=== PATIENT | female | born 1965 | race Caucasian/White ===

== ENCOUNTER 2016-08-19 16:50 | Inpatient (IN) | payer BC, MEDICAID ==
[2016-08-19] MEDS ORDERED: IPRATROPIUM/ALBUTEROL 0.5-2.5 MG/3 ML AMPUL NEB ONE ×3 (17:00→21:14)
--- NOTE | 2016-08-19 17:03 | ER Document Report ---
ED Medical Screen (RME) - General Stated Complaint: DIFFICULTY BREATHING Mode of Arrival: Wheelchair Information source: Patient Notes: Patient presents to the emergency department with complaints of difficulty breathing. History of asthma or pneumonia. Patient was evaluated and treated by her primary care provider within steroids Levaquin and neb treatments. Last neb treatments 2 years ago. She is okay as long as she sitting down. I have greeted and performed a rapid initial assessment of this patient. A comprehensive ED assessment and evaluation of the patient, analysis of test results and completion of the medical decision making process will be conducted by additional ED providers. TRAVEL OUTSIDE OF THE [place] IN LAST 30 DAYS: No - Related Data Allergies/Adverse Reactions: Penicillins Allergy (Severe, Verified 08/27/12 10:42) Anaphylaxis Past Medical History - Social History Family history: CAD, DM, Hypertension, Malignancy - Past Medical History Cardiac Medical History: Reports: Hx Hypercholesterolemia, Hx Hypertension Denies: Hx Heart Attack Pulmonary Medical History: Reports: Hx Asthma, Hx COPD, Hx Pneumonia Neurological Medical History: Denies: Hx Cerebrovascular Accident Endocrine Medical History: Reports: Hx Diabetes Mellitus Type 2 GI Medical History: Reports: Hx Hepatitis - Hepatitis B Musculoskeltal Medical History: Reports Hx Arthritis, Denies Hx Fibromyalgia, Denies Hx Musculoskeletal Deformity Psychiatric Medical History: Reports: Hx Bipolar Disorder, Hx Depression Denies: Hx Anxiety Infectious Medical History: Reports: Hx Hepatitis - Hepatitis B. Denies: Hx MRSA Past Surgical History: Reports: Hx Appendectomy, Hx Genitourinary Surgery - multiple stents, nephrostomies, partial nephrectomy, Hx Orthopedic Surgery - R FOOT, Hx Tubal Ligation - Immunizations Hx Diphtheria, Pertussis, Tetanus Vaccination: Yes Physical Exam - Vital signs Vitals: Temp Pulse Resp BP Pulse Ox 97.6 F 102 H 26 H 157/89 H 92 08/19/16 16:56 08/19/16 16:56 08/19/16 16:56 08/19/16 16:56 08/19/16 16:56 Course - Vital Signs Vital signs: Temp Pulse Resp BP Pulse Ox 97.6 F 102 H 26 H 157/89 H 92 08/19/16 16:56 08/19/16 16:56 08/19/16 16:56 08/19/16 16:56 08/19/16 16:56
[2016-08-19 17:58] LABS: ABSOLUTE EOSINOPHILS # (AUTO) 0.2 10^3/uL (0.0-0.6); ABSOLUTE LYMPHOCYTES (AUTO) 1.5 10^3/uL (0.5-4.7); ABSOLUTE MONOCYTES (AUTO) 0.9 10^3/uL (0.1-1.4); ABSOLUTE NEUT (AUTO) 7.5 10^3/uL (1.7-8.2); BASOPHILS % (AUTO) 0.5 % (0-2); EOSINOPHILS % (AUTO) 1.7 % (0-6); HEMATOCRIT 44.6 % (36.0-47.0); HEMOGLOBIN 13.7 g/dL (12.0-15.5); HGB HCT DIFFERENCE -3.5; LYMPHOCYTES % (AUTO) 14.8 % (13-45); MEAN CORPUSCULAR HEMOGLOBIN 26.5 pg (27.0-33.4); MEAN CORPUSCULAR HGB CONC 30.6 g/dL (32.0-36.0); MEAN CORPUSCULAR VOLUME 87 fl (80-97); MONOCYTES % (AUTO) 8.9 % (3-13); RED BLOOD COUNT 5.15 10^6/uL (3.72-5.28); RED CELL DISTRIBUTION WIDTH 14.9 % (11.5-14.0); SEGMENTED NEUTROPHILS % (AUTO) 74.1 % (42-78); WHITE BLOOD COUNT 10.1 10^3/uL (4.0-10.5)
[2016-08-19 18:17] LABS: ALANINE AMINOTRANSFERASE 41 U/L (9-52); ALBUMIN 3.7 g/dL (3.5-5.0); ALKALINE PHOSPHATASE 110 U/L (38-126); ANION GAP 10 (5-19); ASPARTATE AMINO TRANSFERASE 21 U/L (14-36); BILIRUBIN,TOTAL 0.4 mg/dL (0.2-1.3); BLOOD UREA NITROGEN 26 mg/dL (7-20); CALCIUM 9.3 mg/dL (8.4-10.2); CARBON DIOXIDE 31 mmol/L (22-30); CHLORIDE 98 mmol/L (98-107); GLUCOSE 173 mg/dL (75-110); POTASSIUM 4.2 mmol/L (3.6-5.0); SODIUM 138.8 mmol/L (137-145); TOTAL PROTEIN 6.8 g/dL (6.3-8.2)
[2016-08-19] MEDS ORDERED: ALBUTEROL SULFATE 0.083% NEB 2.5 MG/3 ML AMPUL NEB ONE ×3 (19:38→21:14)
[2016-08-19] MEDS ORDERED: METHYLPREDNISOLONE INJ 125 MG/2 ML SDV IV ONE (19:41)
--- NOTE | 2016-08-19 19:43 | ER Document Report ---
ED Respiratory Problem - General Chief Complaint: Breathing Difficulty Stated Complaint: DIFFICULTY BREATHING Time seen by provider: 19:38 Mode of Arrival: Wheelchair Information source: Patient TRAVEL OUTSIDE OF THE [place] IN LAST 30 DAYS: No - HPI Patient complains to provider of: COPD, Cough, Short of breath Onset: Other - 3 weeks Duration: Worse/persistent Quality of pain: Achy Severity: Moderate Pain Level: 2 Context: Hx asthma, Hx COPD, Smoker Short of Breath: Moderate Chest pain/discomfort: Tightness Cough: Productive Sputum amount: Small Sputum color: Yellow Sputum consistency: Mucoid At home treatment: Bronchodilators, Oral steroids Associated symptoms: Congestion, Cough, Difficulty breathing, Sinus pain/ pressure, Short of breath, Wheezing Similar symptoms previously: Yes Recently seen / treated by doctor: Yes Notes: Patient is a 51-year-old female who is a smoker with a history of COPD and a previous episode of pneumonia, who presents to the emergency room complaining of sinus pain and congestion, productive cough, difficulty breathing and fever over the past 3 weeks, she has been seen by her primary care provider on 2 occasions during the course of illness and has been on antibiotics, previously on doxycycline, currently on Levaquin, with one dose of steroids yesterday and nebulizer treatments as needed, today her difficulty breathing has worsened - Related Data Allergies/Adverse Reactions: Penicillins Allergy (Severe, Verified 08/27/12 10:42) Anaphylaxis Past Medical History - General Information source: Patient - Social History Smoking Status: Current Every Day Smoker Chew tobacco use (# tins/day): No Frequency of alcohol use: None Drug Abuse: None Family History: Reviewed & Not Pertinent Patient has suicidal ideation: No Patient has homicidal ideation: No - Past Medical History Cardiac Medical History: Reports: Hx Hypercholesterolemia, Hx Hypertension Denies: Hx Heart Attack Pulmonary Medical History: Reports: Hx Asthma, Hx COPD, Hx Pneumonia Neurological Medical History: Denies: Hx Cerebrovascular Accident Endocrine Medical History: Reports: Hx Diabetes Mellitus Type 2 Renal/ Medical History: Denies: Hx Peritoneal Dialysis GI Medical History: Reports: Hx Hepatitis - Hepatitis B Musculoskeltal Medical History: Reports Hx Arthritis, Denies Hx Fibromyalgia, Denies Hx Musculoskeletal Deformity Psychiatric Medical History: Reports: Hx Bipolar Disorder, Hx Depression Denies: Hx Anxiety Infectious Medical History: Reports: Hx Hepatitis - Hepatitis B. Denies: Hx MRSA Past Surgical History: Reports: Hx Appendectomy, Hx Genitourinary Surgery - multiple stents, nephrostomies, partial nephrectomy, Hx Orthopedic Surgery - R FOOT, Hx Tubal Ligation - Immunizations Hx Diphtheria, Pertussis, Tetanus Vaccination: Yes Review of Systems - Review of Systems Constitutional: Fever EENT: See HPI Cardiovascular: No symptoms reported Respiratory: See HPI Gastrointestinal: No symptoms reported Genitourinary: No symptoms reported Female Genitourinary: No symptoms reported Musculoskeletal: No symptoms reported Skin: No symptoms reported Hematologic/Lymphatic: No symptoms reported Neurological/Psychological: No symptoms reported -: Yes All other systems reviewed and negative Physical Exam - Vital signs Vitals: Temp Pulse Resp BP Pulse Ox 97.6 F 102 H 26 H 157/89 H 92 08/19/16 16:56 08/19/16 16:56 08/19/16 16:56 08/19/16 16:56 08/19/16 16:56 Interpretation: Hypertensive, Tachycardic, Tachypneic - General General appearance: Appears well, Alert - HEENT Head: Normocephalic, Atraumatic Eyes: Normal Pupils: PERRL - Respiratory Respiratory status: No respiratory distress Chest status: Nontender Breath sounds: Nonproductive cough, Wheezing Chest palpation: Normal - Cardiovascular Rhythm: Regular Heart sounds: Normal auscultation Murmur: No - Abdominal Inspection: Normal Distension: No distension Bowel sounds: Normal Tenderness: Nontender Organomegaly: No organomegaly - Back Back: Normal, Nontender - Extremities General upper extremity: Normal inspection, Nontender, Normal color, Normal ROM , Normal temperature General lower extremity: Normal inspection, Nontender, Normal color, Normal ROM , Normal temperature, Normal weight bearing. No: Alo's sign - Neurological Neuro grossly intact: Yes Cognition: Normal Orientation: AAOx4 [place] Coma Scale Eye Opening: Spontaneous [place] Coma Scale Verbal: Oriented [place] Coma Scale Motor: Obeys Commands [place] Coma Scale Total: 15 Speech: Normal Motor strength normal: LUE, RUE, LLE, RLE Sensory: Normal - Psychological Associated symptoms: Normal affect, Normal mood - Skin Skin Temperature: Warm Skin Moisture: Dry Skin Color: Normal Course - Re-evaluation Re-evalutation: 08/19/16 21:47 Attempted to call hospitalist for admission, no answer 08/19/16 21:56 patient continues to have difficulty breathing, wheezing diffusely, no distress at the present time, however she's had multiple breathing treatments, IM steroids, therefore she was discussed with the hospitalist who will admit for further evaluation and treatment - Vital Signs Vital signs: Temp Pulse Resp BP Pulse Ox 97.6 F 102 H 26 H 157/89 H 92 08/19/16 16:56 08/19/16 16:56 08/19/16 16:56 08/19/16 16:56 08/19/16 16:56 - Laboratory Result Diagrams: 08/19/16 17:38 08/19/16 17:38 Laboratory results interpreted by me: 08/19/16 08/19/16 17:38 17:38 MCH 26.5 L MCHC 30.6 L RDW 14.9 H Carbon Dioxide 31 H BUN 26 H Est GFR ( Amer) 57 L Est GFR (Non-Af Amer) 47 L Glucose 173 H - Diagnostic Test Radiology reviewed: Image reviewed, Reports reviewed Discharge - Discharge Clinical Impression: Chronic obstructive pulmonary disease (COPD) Qualifiers: COPD type: COPD with acute exacerbation Qualified Code(s): J44.1 - Chronic obstructive pulmonary disease with (acute) exacerbation Condition: Stable Disposition: ADMITTED INPATIENT Admitting Provider: Hospitalist Unit Admitted: Telemetry Referrals: SUNNY WOODY MD [Primary Care Provider] - Follow up as needed
[2016-08-19] MEDS ORDERED: METHYLPREDNISOLONE INJ 125 MG/2 ML SDV IM ONE (19:53)
[2016-08-19] MEDS ORDERED: NICOTINE 21 MG/24 HR PATCH.TD24 TD SCH (22:15)
[2016-08-19] MEDS ORDERED: NICOTINE 21 MG/24 HR PATCH.TD24 TD PRN (23:58)
[2016-08-19] MEDS ORDERED: DEXTROSE 50%-WATER 25 GM/50 ML DISP.SYRIN IV PRN ×2 (23:59)
[2016-08-19] MEDS ORDERED: GLUCAGON,HUMAN RECOMB 1 MG INJ IM PRN (23:59)
[2016-08-19] MEDS ORDERED: DEXTROSE 40% GEL 15 GM TUBE PO PRN ×2 (23:59)
[2016-08-20] MEDS ORDERED: NORMAL SALINE 1000 ML 1,000 ML IV PRN (00:04)
[2016-08-20] MEDS ORDERED: ALBUTEROL SULFATE 0.083% NEB 2.5 MG/3 ML AMPUL NEB PRN (00:05)
[2016-08-20] MEDS ORDERED: GUAIFENESIN SYRP 200 MG/10 ML UDC PO PRN (00:05)
[2016-08-20 00:15] LABS: ADD ON TESTING BLD IN LAB ACKNOWLEDGE
[2016-08-20] MEDS ORDERED: GENTAMICIN SULFATE 0 MG in DEXTROSE 5%-WATER 100 ML IV NR (00:15)
[2016-08-20] MEDS ORDERED: AZTREONAM 1 GM in DEXTROSE 5%-WATER 50 ML IV SCH (00:15)
[2016-08-20 00:22] LABS: VENOUS BLOOD BASE EXCESS 0.9 mmol/L; VENOUS BLOOD HCO3 26.6 mmol/L (20-32); VENOUS BLOOD PCO2 46.4 mmHg (35-63); VENOUS BLOOD PH 7.38 (7.30-7.42)
[2016-08-20 00:32] LABS: MAGNESIUM 1.7 mg/dL (1.6-2.3)
--- NOTE | 2016-08-20 00:44 | PDOC H&P ---
History of Present Illness Admission Date/PCP: 08/19/16 22:01 SUNNY WOODY Rex Patient complains of: difficulty breathing History of Present Illness: PATRICE KEY is a 51 year old obese female, with underlying bipolar disorder, type II diabetes mellitus, hypertension, and chronic pain who presents to the emergency room for evaluation of above complaint. She has underlying asthma and COPD, and is a long-term smoker, currently on one and a half packs of cigarettes per day. Describes a 3 week history of slowly progressive difficulty breathing, with sinus congestion, productive cough, intermittent fever along with nausea but no vomiting. No diarrhea. Chest discomfort only with the cough. Difficulty breathing has worsened particularly over the last 24 hours, in particular with much of any exertion. Initially was treated by primary care provider with doxycycline for sinus infection. Currently on oral Levaquin. Received a dose of intramuscular steroids on the from her primary care provider. Despite the above treatment, her symptoms have slowly progressed. Has had neither flu nor pneumonia vaccinations. Obstructive sleep apnea, setting of 5, but she is not completely certain of this setting. No home oxygen. Patient has been discussed with emergency room physician who evaluated the patient. . Laboratory results are listed in [employer] and are reviewed. X-ray summary results are listed below, with full report(s) reviewed. . EKG pending Social history/personal habits: . Has children. Is a construction project manager at [employer] no use of alcohol or illicit drugs. Tobacco use as noted above. Allergies/adverse reactions are listed in [employer] and are reviewed. No problems with Keflex. Home medications are reviewed by discussion with patient and are to be reconciled by nursing staff in [facility]. Home medications initially autopopulated into [employer] may not accurately reflect patient's true medications, dosages, and/or frequencies. REVIEW OF SYSTEMS: Constitutional: See history and present illness. Eyes: Wears glasses. ENT: No swallowing problems or complaints. No hearing problems or complaints. Pulmonary: See history and present illness. Cardiovascular: See history and present illness. Gastrointestinal: See history and present illness. Skin: No current complaints, including rashes. Hematologic: No unusual easy bruising or bleeding. Neurologic: No current complaints, including numbness or tingling. Musculoskeletal: Joint pain from arthritis. Psychiatric: Mild depression; denies suicidal or homicidal ideation. Endocrine: No current complaints, including polyuria. Genitourinary: No current complaints, including dysuria. PHYSICAL EXAMINATION: 5 feet 9-1/2 inches tall. 113.8 kg. BMI 36.5 kg/m. Temperature 98.5. Pulse 110 and regular. Blood pressure 172/77. Respirations are 20 and unlabored. 91 % saturation on room air. Obese somewhat chronically ill-appearing female who nevertheless appears approximately her stated age. Appears to feel a bit under the weather, so to speak. Mildly anxious, but no agitation. Pleasant awake alert and cooperative. Female emergency room nurse Vicki is present. Skin is warm and dry. No grossly obvious evidence of rash in areas of skin examined. No subcutaneous nodules palpated. ENT: Hearing grossly normal to normal conversation. Tongue midline on protrusion pink and slightly tacky. Eyes: No scleral icterus. Pupils equal and reactive to light at 4 mm. Berry conjunctivae. Neck is supple and nontender to gentle active range of motion and palpation. Midline trachea. No palpable thyroid nodule mass enlargement or tenderness. Lymphatic: No palpable cervical or clavicular nodes. Neck and lymphatic exams limited by patient body habitus. Psychiatric: Reasonable insight into acute and chronic medical issues. Oriented to time location and why here. Lungs: Auscultation reveals equal breath sounds bilaterally. No use of accessory respiratory muscles. Mild brief expiratory wheezing throughout. Cardiovascular: Heart regular rate and rhythm, without gallop murmur or rub. No carotid or abdominal aortic bruits. No ankle or pedal edema. Faintly palpable dorsalis pedis pulses. Abdomen: soft, obese, nontender with positive bowel sounds. Unable to adequately evaluate abdomen for masses or organomegaly due to body habitus. Extremities: Feet are warm and dry. No calf tenderness to compression. No grossly obvious visual evidence of calf swelling. Gentle manipulation of lower extremities fails to reveal any obvious evidence of injury or instability to knees hips or ankles. Neurologic: Moves upper extremities grossly normally. Patellar reflexes absent. Absent Babinski. Light touch is intact at feet. Dorsiflexion and plantarflexion of feet 5 / 5 and symmetric. Past Medical History Cardiac Medical History: Reports: Hyperlipidema - On no medication for same., Hypertension Denies: Myocardial Infarction Pulmonary Medical History: Reports: Asthma, Chronic Obstructive Pulmonary Disease (COPD) - No home O2., Pneumonia, Sleep Apnea - CPAP, with setting of 5, but patient not completely certain of setting. EENT Medical History: Reports: Eyes - Glasses Denies: Ears, Throat Neurological Medical History: Denies: Hemorrhagic CVA, Ischemic CVA, Seizures Endocrine Medical History: Reports: Diabetes Mellitus Type 2, Obesity Denies: Diabetes Mellitus Type 1, Hyperthyroidism, Hypothyroidism Renal/ Medical History: Reports: Other - Solitary kidney, status post completion nephrectomy for benign disease, April 2016 GI Medical History: Reports: Hepatitis - Hepatitis B Denies: Cirrhosis, Gastroesophageal Reflux Disease, Peptic Ulcer Disease Musculoskeltal Medical History: Reports: Arthritis Denies: Fibromyalgia Psychiatric Medical History: Reports: Bipolar Disorder, Depression, Tobacco Dependency Denies: Alcohol Dependency, Substance Abuse Hematology: Reports: None Infectious Medical History: Reports: Hepatitis B Denies: Hepatitis C, Methicillin-Resistant Staph Aureus Past Surgical History Past Surgical History: Reports: Appendectomy, Orthopedic Surgery - R FOOT, Tubal Ligation, Other - Nephrectomy for benign disease Social History Information Source: Patient, Emergency Med Personnel, [facility] Records Lives with: Spouse/Significant other Smoking Status: Current Every Day Smoker Frequency of Alcohol Use: None Hx Recreational Drug Use: No Hx Prescription Drug Abuse: No - Advance Directive Resuscitation Status: Full Code Surrogate healthcare decision maker:: Family History Family History: Reviewed & Not Pertinent Parental Family History Reviewed: Yes Children Family History Reviewed: Yes Sibling(s) Family History Reviewed.: Yes Medication/Allergy Home Medications: RX: Fluoxetine HCl [Prozac 20 mg Capsule] 20 mg PO DAILY 09/11/11 RX: Trazodone HCl [Desyrel 50 mg Tablet] 50 mg PO QHS 09/11/11 RX: Metformin HCl [Metformin HCl ER] 750 mg PO QHS 12/31/14 RX: Levofloxacin [Levaquin 750 mg Tablet] 750 mg PO DAILY #3 tablet 01/11/15 Albuterol Sulfate [Albuterol Sulfate 2.5mg/3 mL] 1 vial IH Q4HP PRN 08/20/16 Albuterol Sulfate [Albuterol Sulfate Hfa] 2 puff IH Q4HP PRN 08/20/16 Budesonide/Formoterol Fumarate [Symbicort Hfa 160-4.5 Mcg Inhaler 6 gm] 2 puff IH Q12 08/20/16 Cyclobenzaprine HCl [Cyclobenzaprine HCl] 5 mg PO QHS 08/20/16 Ipratropium [place] [Atrovent 0.02% Neb 0.5 mg/2.5 ml Ampul] 0.5 mg NEB QIDP PRN 08/20/16 Ondansetron [Zofran Odt 4 mg Tablet] 4 mg PO TIDP PRN 08/20/16 Oxycodone HCl [Oxycontin] 30 mg PO Q12 08/20/16 Oxycodone HCl/Acetaminophen [Oxycodon-Acetaminophen 7.5-325] 1 tab PO Q6HP PRN 08/20/16 RX: Lisinopril [Prinivil 10 mg Tablet] 40 mg PO Q12 08/20/16 RX: Meloxicam 15 mg PO DAILY 08/20/16 Allergies/Adverse Reactions: Penicillins Allergy (Severe, Verified 08/20/16 00:08) Anaphylaxis Physical Exam Vital Signs: Temp Pulse Resp BP Pulse Ox 98.5 F 110 H 20 172/77 H 91 L 08/19/16 23:45 08/19/16 23:45 08/19/16 23:45 08/19/16 23:45 08/19/16 23:45 Results Impressions: Chest X-Ray 08/19/16 16:59 IMPRESSION: NO SIGNIFICANT RADIOGRAPHIC FINDING IN THE CHEST. Assessment & Plan - Diagnosis (1) ARF (acute renal failure) Qualifiers: Acute renal failure type: unspecified Qualified Code(s): N17.9 - Acute kidney failure, unspecified Is this a current diagnosis for this admission?: YesPlan: Likely prerenal. No vomiting or diarrhea, but little by mouth intake over the past 2-3 days. IV fluids. Follow-up chemistry. (2) Asthma exacerbation Is this a current diagnosis for this admission?: Yes (3) COPD exacerbation Is this a current diagnosis for this admission?: YesPlan: Patient will be admitted under COPD exacerbation and pneumonia protocol. Incentive spirometry twice a day. Scheduled DuoNeb's. PRN albuterol nebs Solu-Medrol Prevacid for gastritis prophylaxis. Antibiotics will consist of aztreonam, and intravenous Zithromax. I strongly encouraged patient to notify staff should patient feel that respiratory status is worsening. Patient is a full code. I have strongly encouraged patient not to get out of bed without notifying staff , , to avoid a fall with injury. Knee high SCDs for DVT prophylaxis, along with subcutaneous Lovenox Impression and plans were discussed with patient, who concurs. Time spent in evaluation and management of patient: 68 minutes. (4) Tobacco dependency Is this a current diagnosis for this admission?: YesPlan: When necessary nicotine patch. (5) Hypertension Qualifiers: Hypertension type: essential hypertension Qualified Code(s): I10 - Essential (primary) hypertension Is this a current diagnosis for this admission?: YesPlan: Resume home medications as appropriate once these have been reviewed. (6) Bipolar disorder Qualifiers: Active/Remission status: remission status unspecified Qualified Code (s): F31.9 - Bipolar disorder, unspecified Is this a current diagnosis for this admission?: YesPlan: Resume home medications as appropriate once these have been reviewed. (7) Diabetes mellitus type 2 in obese Is this a current diagnosis for this admission?: YesPlan: Will hold metformin the present time in case intravenous contrast study is required. Start with clear liquids. Accu-Cheks with appropriate sliding scale coverage. (8) Solitary kidney, acquired Is this a current diagnosis for this admission?: Yes - Inpatient Certification Based on my medical assessment, after consideration of the patient's comorbidities, presenting symptoms, or acuity I expect that the services needed warrant INPATIENT care.: Yes I certify that my determination is in accordance with my understanding of Medicare's requirements for reasonable and necessary INPATIENT services [42 CFR 412.3e].: Yes Medical Necessity: Significant Comorbidiites Make Outpatient Treatment Too Risky , Need Close Monitoring Due to Risk of Patient Decompensation, Need For IV Fluids, Need For Continuous Telemetry Monitoring, Need for Nebulizer Therapy and Monitoring of Response, Need for IV Antibiotics, Risk of Complication if Not Cared For in Hospital Post Hospital Care: D/C or Transfer Summary
[2016-08-20 00:50] LABS: CREATINE KINASE MB 1.16 ng/mL (<4.55)
[2016-08-20 00:51] LABS: TROPONIN I < 0.012 ng/mL
[2016-08-20 00:54] LABS: APPEARANCE,URINE CLEAR; BILIRUBIN,URINE NEGATIVE (NEGATIVE); GLUCOSE, URINE 150 mg/dL (NEGATIVE); KETONES,URINE NEGATIVE (NEGATIVE); LEUKOCYTE ESTERASE,URINE NEGATIVE (NEGATIVE); NITRITE,URINE NEGATIVE (NEGATIVE); PROTEIN,URINE 30 mg/dL (NEGATIVE); URINE SPECIFIC GRAVITY 1.012; UROBILINOGEN,URINE NEGATIVE mg/dL (<2.0)
[2016-08-20] MEDS ORDERED: AZITHROMYCIN 500 MG in DEXTROSE 5%-WATER 250 ML IV SCH (01:00)
[2016-08-20] MEDS ORDERED: GENTAMICIN SULFATE IV ONE (02:00)
[2016-08-20] MEDS ORDERED: WATER IV ONE (02:00)
[2016-08-20] MEDS ORDERED: DEXTROSE 5% IV ONE (02:00)
[2016-08-20] MEDS ORDERED: AZTREONAM 1 GM in DEXTROSE 5%-WATER 50 ML IV ONE (02:30)
[2016-08-20] MEDS: OXYCODONE HCL IR 5 MG TABLET PO PRN ×3 (02:40→16:38)
[2016-08-20] MEDS: INSULIN LISPRO 100 UNIT/ML 3 ML VIAL SUBCUT PRN ×4 (03:28→23:19)
[2016-08-20] MEDS ORDERED: GENTAMICIN SULFATE/PF INJ 20 MG/2 ML VIAL ONE (03:51)
[2016-08-20] MEDS ORDERED: GENTAMICIN SULFATE INJ 80 MG/2 ML VIAL ONE (03:51)
[2016-08-20] MEDS ORDERED: AZTREONAM INJ 1 GM VIAL ONE (03:52)
[2016-08-20] MEDS ORDERED: METHYLPREDNISOLONE INJ 125 MG/2 ML SDV IV SCH (04:00)
[2016-08-20 05:21] LABS: ANION GAP 14 (5-19); BLOOD UREA NITROGEN 23 mg/dL (7-20); CALCIUM 9.3 mg/dL (8.4-10.2); CARBON DIOXIDE 26 mmol/L (22-30); CHLORIDE 97 mmol/L (98-107); CREATININE RESULT 0.98 mg/dL (0.52-1.25); GLUCOSE 324 mg/dL (75-110); SODIUM 136.5 mmol/L (137-145)
[2016-08-20 05:29] LABS: HEMATOCRIT 42.8 % (36.0-47.0); HEMOGLOBIN 13.9 g/dL (12.0-15.5); HGB HCT DIFFERENCE -1.1; MEAN CORPUSCULAR HEMOGLOBIN 27.2 pg (27.0-33.4); MEAN CORPUSCULAR HGB CONC 32.4 g/dL (32.0-36.0); MEAN CORPUSCULAR VOLUME 84 fl (80-97); RED CELL DISTRIBUTION WIDTH 15.3 % (11.5-14.0); WHITE BLOOD COUNT 12.6 10^3/uL (4.0-10.5)
[2016-08-20 05:40] LABS: POTASSIUM 5.5 mmol/L (3.6-5.0)
[2016-08-20 05:42] LABS: ANISOCYTOSIS SLIGHT; BASOPHILS % (MANUAL) 0 % (0-2); EOSINOPHILS % (MANUAL) 0 % (0-6); LYMPHOCYTES % (MANUAL) 5 % (13-45); TOTAL CELLS COUNTED 100; TOXIC GRANULATION SLIGHT
[2016-08-20] MEDS: LANSOPRAZOLE 30 MG TAB.RAP.DR PO SCH ×2 (06:16→16:37)
[2016-08-20] MEDS ORDERED: IPRATROPIUM/ALBUTEROL 0.5-2.5 MG/3 ML AMPUL NEB SCH (08:00)
[2016-08-20] MEDS ORDERED: INFLUENZA ADLT QUAD (36MOS+) 2016-17 VAC 0.5 ML SYR IM PRN (08:32)
[2016-08-20] MEDS: ENOXAPARIN SODIUM INJ 40 MG/0.4 ML DISP.SYRIN SUBCUT SCH (09:00)
[2016-08-20] MEDS ORDERED: ONDANSETRON 4 MG TAB.RAPDIS PO PRN (09:58)
[2016-08-20] MEDS ORDERED: BENZONATATE 100 MG CAPSULE PO PRN (10:48)
[2016-08-20] MEDS: LEVOFLOXACIN 750 MG TABLET PO SCH (11:25)
[2016-08-20] MEDS: ACETAMINOPHEN 325 MG TABLET PO PRN (11:26)
[2016-08-20] MEDS ORDERED: FLUOXETINE HCL 20 MG CAPSULE PO ONE (11:30)
[2016-08-20] MEDS ORDERED: BUDESONIDE/FORMOTEROL 160-4.5 MCG 60 PUFF/6 GM MDI IH ONE (11:30)
[2016-08-20] MEDS ORDERED: GUAIFENESIN 600 MG TABLET.SA PO ONE (11:45)
[2016-08-20] MEDS ORDERED: CETIRIZINE 10 MG TABLET PO ONE (11:45)
[2016-08-20] MEDS ORDERED: LACTOBACILLUS ACIDOPHILUS 250 MG TAB PO ONE (11:45)
[2016-08-20] MEDS ORDERED: SODIUM POLYSTYRENE SULFONATE 15 GM/60 ML PO ONE (11:45)
[2016-08-20] MEDS ORDERED: FLUTICASONE/SALMETEROL DISKUS 250-50 MCG/DOSE IH ONE (11:45)
--- NOTE | 2016-08-20 12:42 | EKG REPORT ---
SEVERITY:- OTHERWISE NORMAL ECG - SINUS TACHYCARDIA : Confirmed by: Nathaly Lofton MD 20-Aug-2016 12:41:50
[2016-08-20] MEDS ORDERED: AMLODIPINE BESYLATE 5 MG TABLET PO ONE (13:00)
[2016-08-20] MEDS: ALBUTEROL SULFATE 0.083% NEB 2.5 MG/3 ML AMPUL NEB SCH ×2 (13:54→20:00)
[2016-08-20] MEDS: METHYLPREDNISOLONE INJ 125 MG/2 ML SDV IV SCH ×2 (13:56→22:33)
--- NOTE | 2016-08-20 14:33 | PDOC PROGRESS REPORT ---
Subjective Progress Note for:: 08/20/16 Subjective:: The patient was seen earlier today on rounds. The patient states that her shortness of breath has improved in comparison to when she came in however she still is quite dyspneic even ambulate into the bathroom. Patient admits to cough but denies any sputum production. The patient denies any nausea, vomiting , diarrhea dizziness, chest pain, heart palpitations, fevers, or chills. The patient has remained afebrile. Blood pressures have been in a good range. When prompted the patient voices no other concerns at this time. Review of systems: The rest of the review of systems is negative. Physical Exam Vital Signs: Temp Pulse Resp BP Pulse Ox 97.7 F 96 18 172/79 H 96 08/20/16 11:22 08/20/16 13:56 08/20/16 13:56 08/20/16 11:22 08/20/16 13:56 Intake & Output 08/18/16 08/19/16 08/20/16 23:59 23:59 23:59 Intake Total 1587 Output Total 2300 Balance -713 Weight 112.5 kg General appearance: PRESENT: no acute distress, well-developed, well-nourished Head exam: PRESENT: atraumatic, normocephalic Eye exam: PRESENT: conjunctiva pink, EOMI, PERRLA. ABSENT: scleral icterus Ear exam: PRESENT: normal external ear exam Mouth exam: PRESENT: moist, tongue midline Neck exam: ABSENT: carotid bruit, JVD, lymphadenopathy, thyromegaly Respiratory exam: PRESENT: symmetrical, tachypnea, wheezes - Diffuse expiratory wheezes. ABSENT: rales, rhonchi, unlabored Cardiovascular exam: PRESENT: RRR. ABSENT: diastolic murmur, rubs, systolic murmur Pulses: PRESENT: normal dorsalis pedis pul Vascular exam: PRESENT: normal capillary refill GI/Abdominal exam: PRESENT: normal bowel sounds, soft. ABSENT: distended, guarding, mass, organolmegaly, rebound, tenderness Rectal exam: PRESENT: deferred Extremities exam: PRESENT: full ROM. ABSENT: calf tenderness, clubbing, pedal edema Neurological exam: PRESENT: alert, awake, oriented to person, oriented to place , oriented to time, oriented to situation, CN II-XII grossly intact. ABSENT: motor sensory deficit Psychiatric exam: PRESENT: appropriate affect, normal mood. ABSENT: homicidal ideation, suicidal ideation Skin exam: PRESENT: dry, intact, warm. ABSENT: cyanosis, rash Results Laboratory Results: 08/20/16 04:30 08/20/16 04:30 08/20/16 08/20/16 08/20/16 00:12 00:36 04:30 WBC 12.6 H RBC 5.10 Hgb 13.9 Hct 42.8 MCV 84 MCH 27.2 MCHC 32.4 RDW 15.3 H Plt Count 207 Seg Neutrophils % Not Reportable Lymphocytes % Not Reportable Monocytes % Not Reportable Eosinophils % Not Reportable Basophils % Not Reportable Absolute Neutrophils Not Reportable Absolute Lymphocytes Not Reportable Absolute Monocytes Not Reportable Absolute Eosinophils Not Reportable Absolute Basophils Not Reportable VBG pH 7.38 VBG pCO2 46.4 VBG HCO3 26.6 VBG Base Excess 0.9 Sodium Potassium Chloride Carbon Dioxide Anion Gap BUN Creatinine Est GFR ( Amer) Est GFR (Non-Af Amer) Glucose Calcium Urine Color YELLOW Urine Appearance CLEAR Urine pH 5.0 Ur Specific [place] 1.012 Urine Protein 30 H Urine Glucose (UA) 150 H Urine Ketones NEGATIVE Urine Blood NEGATIVE Urine Nitrite NEGATIVE Ur Leukocyte Esterase NEGATIVE Urine WBC (Auto) 0 Urine RBC (Auto) 0 08/20/16 04:30 WBC RBC Hgb Hct MCV MCH MCHC RDW Plt Count Seg Neutrophils % Lymphocytes % Monocytes % Eosinophils % Basophils % Absolute Neutrophils Absolute Lymphocytes Absolute Monocytes Absolute Eosinophils Absolute Basophils VBG pH VBG pCO2 VBG HCO3 VBG Base Excess Sodium 136.5 L Potassium 5.5 H D Chloride 97 L Carbon Dioxide 26 Anion Gap 14 BUN 23 H Creatinine 0.98 Est GFR ( Amer) > 60 Est GFR (Non-Af Amer) > 60 Glucose 324 H Calcium 9.3 Urine Color Urine Appearance Urine pH Ur Specific [place] Urine Protein Urine Glucose (UA) Urine Ketones Urine Blood Urine Nitrite Ur Leukocyte Esterase Urine WBC (Auto) Urine RBC (Auto) 08/20/16 08/20/16 00:12 00:12 Creatine Kinase 72 CK-MB (CK-2) 1.16 Troponin I < 0.012 Impressions: Chest X-Ray 08/19/16 16:59 IMPRESSION: NO SIGNIFICANT RADIOGRAPHIC FINDING IN THE CHEST. Assessment & Plan - Diagnosis (1) Acute asthmatic bronchitis Is this a current diagnosis for this admission?: YesPlan: Will continue with steroids as well as nebulizers (2) COPD exacerbation Is this a current diagnosis for this admission?: Yes (3) Acute on chronic respiratory failure with hypoxia and hypercapnia Is this a current diagnosis for this admission?: YesPlan: Will continue C Pap. Continues on O2. (4) ARF (acute renal failure) Qualifiers: Acute renal failure type: unspecified Qualified Code(s): N17.9 - Acute kidney failure, unspecified Is this a current diagnosis for this admission?: YesPlan: BUN has improved with hydration (5) Diastolic dysfunction Is this a current diagnosis for this admission?: No (6) Hypertension Qualifiers: Hypertension type: essential hypertension Qualified Code(s): I10 - Essential (primary) hypertension Is this a current diagnosis for this admission?: YesPlan: Will hold lisinopril given the patient's hyperkalemia. Start patient on Norvasc and follow. (7) Bipolar disorder Qualifiers: Active/Remission status: remission status unspecified Qualified Code (s): F31.9 - Bipolar disorder, unspecified Is this a current diagnosis for this admission?: YesPlan: Will continue home medications. (8) Diabetes mellitus type 2 in obese Is this a current diagnosis for this admission?: YesPlan: Will continue current medications (9) Hepatitis B Is this a current diagnosis for this admission?: No (10) Solitary kidney, acquired Is this a current diagnosis for this admission?: Yes (11) Hyperkalemia Is this a current diagnosis for this admission?: YesPlan: The patient's sodium so normal range will give Kayexalate. (12) Tobacco dependency Is this a current diagnosis for this admission?: YesPlan: Spent 3 minutes discussing smoking cessation education. The patient declines any pharmacological intervention at this time however will add a PRN nicotine patch. (13) Obesity (BMI 30-39.9) Is this a current diagnosis for this admission?: Yes - Time Time Spent with patient: on this visit including assessment, plan, physical examination, family meeting, and specialty collaboration, and patient education is 35 minutes. Time Spent with patient: 35 or more minutes Medications reviewed and adjusted accordingly: Yes Anticipated discharge: Home Within: within 48 hours Disposition: The patient is a full code. Pending patient's symptomatology and diagnostic findings will reevaluate in the a.m.
[2016-08-20] MEDS: LACTOBACILLUS ACIDOPHILUS 250 MG TAB PO SCH (18:04)
[2016-08-20] MEDS ORDERED: (PENDING PHARMACY ID) (Metformin Hcl [Metformin Hcl Er] 750 MG) PO SCH (22:00)
[2016-08-20] MEDS ORDERED: (PENDING PHARMACY ID) (Cyclobenzaprine Hcl [Cyclobenzaprine Hcl] 5 MG) PO SCH (22:00)
[2016-08-20] MEDS: CYCLOBENZAPRINE HCL 10 MG TABLET PO SCH (22:31)
[2016-08-20] MEDS: GUAIFENESIN 600 MG TABLET.SA PO SCH (22:31)
[2016-08-20] MEDS: TRAZODONE HCL 50 MG TABLET PO SCH (22:33)
[2016-08-20] MEDS: FLUTICASONE/SALMETEROL DISKUS 250-50 MCG/DOSE IH SCH (22:33)
[2016-08-20] MEDS: BUDESONIDE/FORMOTEROL 160-4.5 MCG 60 PUFF/6 GM MDI IH SCH (22:33)
[2016-08-20] MEDS: MONTELUKAST SODIUM 10 MG TABLET PO SCH (22:33)
[2016-08-20] MEDS: AMLODIPINE BESYLATE 5 MG TABLET PO SCH (22:34)
[2016-08-20] MEDS ORDERED: OXYCODONE HCL SR 10 MG TABLET PO SCH (23:00)
[2016-08-20] MEDS: ALBUTEROL SULFATE 0.042% NEB (1.25 MG/3 ML) AMPUL NEB PRN (23:43)
[2016-08-21] MEDS ORDERED: OXYCODONE HCL SR 10 MG TABLET PO ONE (01:30)
[2016-08-21] MEDS: HYDRALAZINE HCL INJ/PF 20 MG/1 ML SDV IV PRN (03:25)
[2016-08-21 05:17] LABS: HEMATOCRIT 44.2 % (36.0-47.0); HEMOGLOBIN 14.2 g/dL (12.0-15.5); HGB HCT DIFFERENCE -1.6; MEAN CORPUSCULAR HEMOGLOBIN 26.9 pg (27.0-33.4); MEAN CORPUSCULAR HGB CONC 32.2 g/dL (32.0-36.0); MEAN CORPUSCULAR VOLUME 84 fl (80-97); RED BLOOD COUNT 5.28 10^6/uL (3.72-5.28); RED CELL DISTRIBUTION WIDTH 15.4 % (11.5-14.0)
[2016-08-21 05:28] LABS: WHITE BLOOD COUNT 27.2 10^3/uL (4.0-10.5)
[2016-08-21 05:31] LABS: ANION GAP 12 (5-19); BLOOD UREA NITROGEN 32 mg/dL (7-20); CALCIUM 9.5 mg/dL (8.4-10.2); CARBON DIOXIDE 25 mmol/L (22-30); CHLORIDE 100 mmol/L (98-107); GLUCOSE 238 mg/dL (75-110); MAGNESIUM 1.9 mg/dL (1.6-2.3); POTASSIUM 4.3 mmol/L (3.6-5.0); SODIUM 137.3 mmol/L (137-145)
[2016-08-21] MEDS: METHYLPREDNISOLONE INJ 125 MG/2 ML SDV IV SCH ×3 (06:16→22:21)
[2016-08-21] MEDS: LANSOPRAZOLE 30 MG TAB.RAP.DR PO SCH ×2 (06:57→16:17)
[2016-08-21] MEDS: ALBUTEROL SULFATE 0.083% NEB 2.5 MG/3 ML AMPUL NEB SCH ×3 (08:22→19:58)
[2016-08-21] MEDS: ENOXAPARIN SODIUM INJ 40 MG/0.4 ML DISP.SYRIN SUBCUT SCH (08:29)
[2016-08-21] MEDS: INSULIN LISPRO 100 UNIT/ML 3 ML VIAL SUBCUT PRN ×4 (08:29→22:20)
[2016-08-21] MEDS: BUDESONIDE/FORMOTEROL 160-4.5 MCG 60 PUFF/6 GM MDI IH SCH ×2 (09:14→22:33)
[2016-08-21] MEDS: FLUTICASONE/SALMETEROL DISKUS 250-50 MCG/DOSE IH SCH ×2 (09:14→22:20)
[2016-08-21] MEDS: AMLODIPINE BESYLATE 5 MG TABLET PO SCH ×2 (09:15→22:23)
[2016-08-21] MEDS: FLUOXETINE HCL 20 MG CAPSULE PO SCH (09:15)
[2016-08-21] MEDS: LACTOBACILLUS ACIDOPHILUS 250 MG TAB PO SCH ×2 (09:15→17:29)
[2016-08-21] MEDS: GUAIFENESIN 600 MG TABLET.SA PO SCH ×2 (09:16→22:22)
[2016-08-21] MEDS: OXYCODONE HCL SR 10 MG TABLET PO SCH ×2 (09:16→22:21)
[2016-08-21] MEDS: CETIRIZINE 10 MG TABLET PO SCH (09:16)
[2016-08-21] MEDS: ACETAMINOPHEN 325 MG TABLET PO PRN (09:17)
[2016-08-21] MEDS ORDERED: (PENDING PHARMACY ID) (Oxycodone Hcl [Oxycontin] 30 MG) PO SCH (10:00)
[2016-08-21] MEDS: LEVOFLOXACIN 750 MG TABLET PO SCH (11:38)
[2016-08-21] MEDS: OXYCODONE HCL IR 5 MG TABLET PO PRN ×2 (11:41→17:33)
[2016-08-21] MEDS: CODEINE SULF 30 MG TABLET PO PRN ×2 (15:20→23:48)
[2016-08-21] MEDS ORDERED: HYDRALAZINE HCL 50 MG TABLET PO SCH (15:30)
--- NOTE | 2016-08-21 15:32 | PDOC PROGRESS REPORT ---
Subjective Progress Note for:: 08/21/16 Subjective:: The patient was seen earlier today on rounds. The patient states that her shortness of breath has improved in comparison to yesterday. Patient states that she has not slept overnight due to excessive coughing. Patient admits to cough but denies any sputum production. The patient denies any nausea, vomiting , diarrhea dizziness, chest pain, heart palpitations, fevers, or chills. The patient has remained afebrile. Blood pressures have been in a good range. When prompted the patient voices no other concerns at this time. Review of systems: The rest of the review of systems is negative. Physical Exam Vital Signs: Temp Pulse Resp BP Pulse Ox 98.0 F 96 17 186/86 H 92 08/21/16 07:47 08/21/16 08:22 08/21/16 08:22 08/21/16 07:47 08/21/16 07:47 Intake & Output 08/19/16 08/20/16 08/21/16 23:59 23:59 23:59 Intake Total 3665 623 Output Total 3600 2000 Balance 65 -1377 Weight 112.5 kg General appearance: PRESENT: no acute distress, well-developed, well-nourished Head exam: PRESENT: atraumatic, normocephalic Eye exam: PRESENT: conjunctiva pink, EOMI, PERRLA. ABSENT: scleral icterus Ear exam: PRESENT: normal external ear exam Mouth exam: PRESENT: moist, tongue midline Neck exam: ABSENT: carotid bruit, JVD, lymphadenopathy, thyromegaly Respiratory exam: PRESENT: symmetrical, tachypnea, wheezes - Diffuse expiratory wheezes. ABSENT: rales, rhonchi, unlabored Cardiovascular exam: PRESENT: RRR. ABSENT: diastolic murmur, rubs, systolic murmur Pulses: PRESENT: normal dorsalis pedis pul Vascular exam: PRESENT: normal capillary refill GI/Abdominal exam: PRESENT: normal bowel sounds, soft. ABSENT: distended, guarding, mass, organolmegaly, rebound, tenderness Rectal exam: PRESENT: deferred Extremities exam: PRESENT: full ROM. ABSENT: calf tenderness, clubbing, pedal edema Neurological exam: PRESENT: alert, awake, oriented to person, oriented to place , oriented to time, oriented to situation, CN II-XII grossly intact. ABSENT: motor sensory deficit Psychiatric exam: PRESENT: appropriate affect, normal mood. ABSENT: homicidal ideation, suicidal ideation Skin exam: PRESENT: dry, intact, warm. ABSENT: cyanosis, rash Results Laboratory Results: 08/21/16 04:55 08/21/16 04:55 08/21/16 08/21/16 04:55 04:55 WBC 27.2 H D RBC 5.28 Hgb 14.2 Hct 44.2 MCV 84 MCH 26.9 L MCHC 32.2 RDW 15.4 H Plt Count 208 Sodium 137.3 Potassium 4.3 Chloride 100 Carbon Dioxide 25 Anion Gap 12 BUN 32 H Creatinine 0.80 Est GFR ( Amer) > 60 Est GFR (Non-Af Amer) > 60 Glucose 238 H Calcium 9.5 Magnesium 1.9 08/20/16 08/20/16 00:12 00:12 Creatine Kinase 72 CK-MB (CK-2) 1.16 Troponin I < 0.012 Impressions: Chest X-Ray 08/19/16 16:59 IMPRESSION: NO SIGNIFICANT RADIOGRAPHIC FINDING IN THE CHEST. Assessment & Plan - Diagnosis (1) Acute asthmatic bronchitis Is this a current diagnosis for this admission?: YesPlan: Will continue with steroids as well as nebulizers (2) COPD exacerbation Is this a current diagnosis for this admission?: Yes (3) Acute on chronic respiratory failure with hypoxia and hypercapnia Is this a current diagnosis for this admission?: YesPlan: Will continue C Pap. Continues on O2. Will obtain d-dimer if elevated will obtain CTA. (4) ARF (acute renal failure) Qualifiers: Acute renal failure type: unspecified Qualified Code(s): N17.9 - Acute kidney failure, unspecified Is this a current diagnosis for this admission?: YesPlan: BUN has improved with hydration (5) Diastolic dysfunction Is this a current diagnosis for this admission?: No (6) Hypertension Qualifiers: Hypertension type: essential hypertension Qualified Code(s): I10 - Essential (primary) hypertension Is this a current diagnosis for this admission?: YesPlan: Will hold lisinopril given the patient's hyperkalemia. Start patient on Norvasc and follow. (7) Bipolar disorder Qualifiers: Active/Remission status: remission status unspecified Qualified Code (s): F31.9 - Bipolar disorder, unspecified Is this a current diagnosis for this admission?: YesPlan: Will continue home medications. (8) Diabetes mellitus type 2 in obese Is this a current diagnosis for this admission?: YesPlan: Will continue current medications (9) Hepatitis B Is this a current diagnosis for this admission?: No (10) Solitary kidney, acquired Is this a current diagnosis for this admission?: Yes (11) Hyperkalemia Is this a current diagnosis for this admission?: YesPlan: The patient's sodium so normal range will give Kayexalate. (12) Tobacco dependency Is this a current diagnosis for this admission?: YesPlan: PRN nicotine patch. (13) Obesity (BMI 30-39.9) Is this a current diagnosis for this admission?: Yes - Time Time Spent with patient: on this visit including assessment, plan, physical examination, and patient education is 25 minutes. Time Spent with patient: 25-34 minutes Medications reviewed and adjusted accordingly: Yes Anticipated discharge: Home Within: within 48 hours Disposition: The patient is a full code. Pending patient's symptomatology and diagnostic findings will reevaluate in the a.m.
[2016-08-21] MEDS ORDERED: HYDRALAZINE HCL 50 MG TABLET PO ONE (16:00)
[2016-08-21] MEDS: NICOTINE 21 MG/24 HR PATCH.TD24 TD PRN (18:42)
[2016-08-21] MEDS: TRAZODONE HCL 50 MG TABLET PO SCH (22:22)
[2016-08-21] MEDS: CYCLOBENZAPRINE HCL 10 MG TABLET PO SCH (22:22)
[2016-08-21] MEDS: HYDRALAZINE HCL 50 MG TABLET PO SCH (22:22)
[2016-08-21] MEDS: MONTELUKAST SODIUM 10 MG TABLET PO SCH (22:23)
[2016-08-22] MEDS: METHYLPREDNISOLONE INJ 125 MG/2 ML SDV IV SCH ×3 (05:54→21:29)
[2016-08-22] MEDS: LANSOPRAZOLE 30 MG TAB.RAP.DR PO SCH ×2 (05:55→17:33)
[2016-08-22] MEDS: HYDRALAZINE HCL 50 MG TABLET PO SCH ×3 (05:55→21:25)
[2016-08-22] MEDS: ALBUTEROL SULFATE 0.083% NEB 2.5 MG/3 ML AMPUL NEB SCH ×3 (07:44→19:30)
[2016-08-22] MEDS: INSULIN LISPRO 100 UNIT/ML 3 ML VIAL SUBCUT PRN ×3 (08:09→23:19)
[2016-08-22] MEDS: ENOXAPARIN SODIUM INJ 40 MG/0.4 ML DISP.SYRIN SUBCUT SCH (08:09)
[2016-08-22] MEDS: CODEINE SULF 30 MG TABLET PO PRN ×2 (08:10→16:25)
[2016-08-22] MEDS: OXYCODONE HCL SR 10 MG TABLET PO SCH ×2 (09:29→21:26)
[2016-08-22] MEDS: CETIRIZINE 10 MG TABLET PO SCH (09:30)
[2016-08-22] MEDS: LACTOBACILLUS ACIDOPHILUS 250 MG TAB PO SCH ×2 (09:30→17:33)
[2016-08-22] MEDS: FLUOXETINE HCL 20 MG CAPSULE PO SCH (09:31)
[2016-08-22] MEDS: GUAIFENESIN 600 MG TABLET.SA PO SCH ×2 (09:31→21:25)
[2016-08-22] MEDS: AMLODIPINE BESYLATE 5 MG TABLET PO SCH ×2 (09:31→21:24)
[2016-08-22] MEDS: FLUTICASONE/SALMETEROL DISKUS 250-50 MCG/DOSE IH SCH ×2 (09:32→21:27)
[2016-08-22] MEDS: BUDESONIDE/FORMOTEROL 160-4.5 MCG 60 PUFF/6 GM MDI IH SCH ×2 (09:32→21:27)
[2016-08-22] MEDS: LEVOFLOXACIN 750 MG TABLET PO SCH (13:10)
--- NOTE | 2016-08-22 13:29 | PDOC PROGRESS REPORT ---
Subjective Progress Note for:: 08/22/16 Subjective:: The patient was seen earlier today on rounds. The patient states that her shortness of breath has improved in comparison to yesterday. Patient states that she has not slept well. The patient stated that her coughing did improve with codeine. The patient denies any nausea, vomiting, diarrhea dizziness, chest pain, heart palpitations, fevers, or chills. The patient has remained afebrile. Blood pressures have been in a good range. When prompted the patient voices no other concerns at this time. Review of systems: The rest of the review of systems is negative. Physical Exam Vital Signs: Temp Pulse Resp BP Pulse Ox 98.3 F 113 H 22 H 175/63 H 92 08/22/16 12:03 08/22/16 12:03 08/22/16 12:03 08/22/16 12:03 08/22/16 12:03 Intake & Output 08/20/16 08/21/16 08/22/16 23:59 23:59 23:59 Intake Total 3665 876 800 Output Total 3600 2300 1200 Balance 65 -1424 -400 Weight 112.5 kg 112.5 kg General appearance: PRESENT: no acute distress, well-developed, well-nourished Head exam: PRESENT: atraumatic, normocephalic Eye exam: PRESENT: conjunctiva pink, EOMI, PERRLA. ABSENT: scleral icterus Ear exam: PRESENT: normal external ear exam Mouth exam: PRESENT: moist, tongue midline Neck exam: ABSENT: carotid bruit, JVD, lymphadenopathy, thyromegaly Respiratory exam: PRESENT: symmetrical, tachypnea, wheezes - Diffuse expiratory wheezes. ABSENT: rales, rhonchi, unlabored Cardiovascular exam: PRESENT: RRR. ABSENT: diastolic murmur, rubs, systolic murmur Pulses: PRESENT: normal dorsalis pedis pul Vascular exam: PRESENT: normal capillary refill GI/Abdominal exam: PRESENT: normal bowel sounds, soft. ABSENT: distended, guarding, mass, organolmegaly, rebound, tenderness Rectal exam: PRESENT: deferred Extremities exam: PRESENT: full ROM. ABSENT: calf tenderness, clubbing, pedal edema Neurological exam: PRESENT: alert, awake, oriented to person, oriented to place , oriented to time, oriented to situation, CN II-XII grossly intact. ABSENT: motor sensory deficit Psychiatric exam: PRESENT: appropriate affect, normal mood. ABSENT: homicidal ideation, suicidal ideation Skin exam: PRESENT: dry, intact, warm. ABSENT: cyanosis, rash Results Laboratory Results: 08/21/16 04:55 08/21/16 04:55 08/20/16 08/20/16 00:12 00:12 Creatine Kinase 72 CK-MB (CK-2) 1.16 Troponin I < 0.012 Impressions: Chest X-Ray 08/19/16 16:59 IMPRESSION: NO SIGNIFICANT RADIOGRAPHIC FINDING IN THE CHEST. Assessment & Plan - Diagnosis (1) Acute asthmatic bronchitis Is this a current diagnosis for this admission?: YesPlan: Will continue with steroids as well as nebulizers (2) COPD exacerbation Is this a current diagnosis for this admission?: YesPlan: Given the patient's persistent symptoms will obtain CT imaging. D-dimer was negative. (3) Acute on chronic respiratory failure with hypoxia and hypercapnia Is this a current diagnosis for this admission?: YesPlan: Will continue C Pap. Continues on O2. (4) ARF (acute renal failure) Qualifiers: Acute renal failure type: unspecified Qualified Code(s): N17.9 - Acute kidney failure, unspecified Is this a current diagnosis for this admission?: YesPlan: BUN has improved with hydration (5) Diastolic dysfunction Is this a current diagnosis for this admission?: No (6) Hypertension Qualifiers: Hypertension type: essential hypertension Qualified Code(s): I10 - Essential (primary) hypertension Is this a current diagnosis for this admission?: YesPlan: Will hold lisinopril given the patient's hyperkalemia. Started patient on Norvasc and follow. Will add hydralazine (7) Bipolar disorder Qualifiers: Active/Remission status: remission status unspecified Qualified Code (s): F31.9 - Bipolar disorder, unspecified Is this a current diagnosis for this admission?: YesPlan: Will continue home medications. (8) Diabetes mellitus type 2 in obese Is this a current diagnosis for this admission?: YesPlan: Will continue current medications (9) Hepatitis B Is this a current diagnosis for this admission?: No (10) Solitary kidney, acquired Is this a current diagnosis for this admission?: Yes (11) Hyperkalemia Is this a current diagnosis for this admission?: YesPlan: The patient's sodium so normal range will give Kayexalate. (12) Tobacco dependency Is this a current diagnosis for this admission?: YesPlan: PRN nicotine patch. (13) Obesity (BMI 30-39.9) Is this a current diagnosis for this admission?: Yes - Time Time Spent with patient: 25-34 minutes Medications reviewed and adjusted accordingly: Yes Anticipated discharge: Home Within: within 48 hours
[2016-08-22] MEDS: ALBUTEROL SULFATE 0.042% NEB (1.25 MG/3 ML) AMPUL NEB PRN (14:46)
[2016-08-22] MEDS ORDERED: LORAZEPAM INJ 2 MG/1 ML VIAL IV PRN (16:42)
[2016-08-22] MEDS: HYDRALAZINE HCL INJ/PF 20 MG/1 ML SDV IV PRN (17:33)
[2016-08-22] MEDS: MONTELUKAST SODIUM 10 MG TABLET PO SCH (21:24)
[2016-08-22] MEDS: TRAZODONE HCL 50 MG TABLET PO SCH (21:25)
[2016-08-22] MEDS: CYCLOBENZAPRINE HCL 10 MG TABLET PO SCH (21:25)
[2016-08-22] MEDS: FLUTICASONE NASAL SPRAY 50 MCG/SPRY 120 SPRAY/16 GM NASL SCH (21:28)
[2016-08-22] MEDS: METFORMIN HCL 750 MG PO SCH (21:30)
[2016-08-23] MEDS: HYDRALAZINE HCL INJ/PF 20 MG/1 ML SDV IV PRN (00:08)
[2016-08-23 05:05] LABS: MEAN CORPUSCULAR HEMOGLOBIN 26.8 pg (27.0-33.4); MEAN CORPUSCULAR HGB CONC 31.9 g/dL (32.0-36.0); MEAN CORPUSCULAR VOLUME 84 fl (80-97); RED CELL DISTRIBUTION WIDTH 15.6 % (11.5-14.0); WHITE BLOOD COUNT 26.7 10^3/uL (4.0-10.5)
[2016-08-23 05:26] LABS: ANION GAP 11 (5-19); BLOOD UREA NITROGEN 32 mg/dL (7-20); CALCIUM 9.5 mg/dL (8.4-10.2); CARBON DIOXIDE 30 mmol/L (22-30); CHLORIDE 99 mmol/L (98-107); CREATININE RESULT 0.85 mg/dL (0.52-1.25); GLUCOSE 221 mg/dL (75-110); MAGNESIUM 2.3 mg/dL (1.6-2.3); POTASSIUM 4.2 mmol/L (3.6-5.0); SODIUM 139.9 mmol/L (137-145)
[2016-08-23] MEDS: HYDRALAZINE HCL 50 MG TABLET PO SCH ×3 (05:50→22:48)
[2016-08-23] MEDS: METHYLPREDNISOLONE INJ 125 MG/2 ML SDV IV SCH ×3 (05:50→22:48)
[2016-08-23] MEDS: LANSOPRAZOLE 30 MG TAB.RAP.DR PO SCH ×2 (05:50→17:14)
[2016-08-23] MEDS: CODEINE SULF 30 MG TABLET PO PRN ×2 (06:02→23:05)
[2016-08-23] MEDS: OXYCODONE HCL IR 5 MG TABLET PO PRN ×2 (06:02→13:26)
[2016-08-23] MEDS: ALBUTEROL SULFATE 0.042% NEB (1.25 MG/3 ML) AMPUL NEB PRN ×2 (06:29→23:10)
[2016-08-23] MEDS ORDERED: FUROSEMIDE INJ/PF 40 MG/4 ML SDV IV ONE ×2 (07:30→18:00)
[2016-08-23] MEDS: INSULIN LISPRO 100 UNIT/ML 3 ML VIAL SUBCUT PRN ×4 (07:42→23:05)
[2016-08-23] MEDS: ENOXAPARIN SODIUM INJ 40 MG/0.4 ML DISP.SYRIN SUBCUT SCH (07:43)
[2016-08-23] MEDS: ALBUTEROL SULFATE 0.083% NEB 2.5 MG/3 ML AMPUL NEB SCH ×3 (08:08→19:45)
[2016-08-23] MEDS: AMLODIPINE BESYLATE 5 MG TABLET PO SCH ×2 (10:52→22:47)
[2016-08-23] MEDS: GUAIFENESIN 600 MG TABLET.SA PO SCH ×2 (10:52→22:45)
[2016-08-23] MEDS: LACTOBACILLUS ACIDOPHILUS 250 MG TAB PO SCH ×2 (10:52→17:14)
[2016-08-23] MEDS: FLUOXETINE HCL 20 MG CAPSULE PO SCH (10:53)
[2016-08-23] MEDS: OXYCODONE HCL SR 10 MG TABLET PO SCH ×2 (10:53→22:46)
[2016-08-23] MEDS: CETIRIZINE 10 MG TABLET PO SCH (10:53)
[2016-08-23] MEDS: BUDESONIDE/FORMOTEROL 160-4.5 MCG 60 PUFF/6 GM MDI IH SCH ×2 (10:54→22:45)
[2016-08-23] MEDS: FLUTICASONE NASAL SPRAY 50 MCG/SPRY 120 SPRAY/16 GM NASL SCH ×2 (10:54→22:44)
[2016-08-23] MEDS: FLUTICASONE/SALMETEROL DISKUS 250-50 MCG/DOSE IH SCH ×2 (10:54→22:44)
[2016-08-23] MEDS: LEVOFLOXACIN 750 MG TABLET PO SCH (11:16)
[2016-08-23] MEDS: NICOTINE 21 MG/24 HR PATCH.TD24 TD PRN (13:39)
--- NOTE | 2016-08-23 14:52 | PDOC PROGRESS REPORT ---
Subjective Progress Note for:: 08/23/16 Subjective:: The patient was seen earlier today on rounds. The patient is out of bed to the bedside chair. The patient overall appears much improved in comparison to yesterday there is no obvious distress. The patient denies any nausea, vomiting , diarrhea, dizziness, chest pain, heart palpitations, fevers, or chills. Dyspnea has improved. The patient has remained afebrile. Blood pressures remain elevated but are improved. When prompted the patient voices no other concerns at this time. Review of systems: The rest of the review of systems is negative. Brief history: The patient is a 51-year-old female with a past medical history of tobacco dependency and subsequent COPD. The patient presented to the emergency department due to shortness of breath. The patient has been on our service in the past for the same presentation. The patient has a history of renal vascular hypertension and has a subsequent single kidney. The patient was admitted and has had very slow improvement in symptoms until today and which her symptoms are much improved. The patient did receive contrast with a CTA on 08/22/2016 and the patient's creatinine is at baseline this morning. The patient was given volume given her acute presentation her solitary kidney however. The patient was resuscitated and has required diuresis. The patient is much improved in symptoms. Physical Exam Vital Signs: Temp Pulse Resp BP Pulse Ox 98.1 F 109 H 26 H 148/59 H 94 08/23/16 10:41 08/23/16 13:50 08/23/16 13:50 08/23/16 10:41 08/23/16 13:50 Intake & Output 08/21/16 08/22/16 08/23/16 23:59 23:59 23:59 Intake Total 876 1847 540 Output Total 2300 2600 150 Balance -1424 -753 390 Weight 112.5 kg 113 kg General appearance: PRESENT: no acute distress, cooperative, well-developed, well-nourished Head exam: PRESENT: atraumatic, normocephalic Eye exam: PRESENT: conjunctiva pink, EOMI, PERRLA. ABSENT: scleral icterus Ear exam: PRESENT: normal external ear exam Mouth exam: PRESENT: moist, tongue midline Neck exam: ABSENT: carotid bruit, JVD, lymphadenopathy, thyromegaly Respiratory exam: PRESENT: symmetrical, unlabored, wheezes. ABSENT: rales, rhonchi, tachypnea Cardiovascular exam: PRESENT: RRR. ABSENT: diastolic murmur, rubs, systolic murmur Pulses: PRESENT: normal dorsalis pedis pul Vascular exam: PRESENT: normal capillary refill GI/Abdominal exam: PRESENT: normal bowel sounds, soft. ABSENT: distended, guarding, mass, organolmegaly, rebound, tenderness Rectal exam: PRESENT: deferred Extremities exam: PRESENT: full ROM. ABSENT: calf tenderness, clubbing, pedal edema Neurological exam: PRESENT: alert, awake, oriented to person, oriented to place , oriented to time, oriented to situation, CN II-XII grossly intact. ABSENT: motor sensory deficit Psychiatric exam: PRESENT: appropriate affect, normal mood. ABSENT: homicidal ideation, suicidal ideation Skin exam: PRESENT: dry, intact, warm. ABSENT: cyanosis, rash Results Laboratory Results: 08/23/16 04:35 08/23/16 04:35 08/23/16 08/23/16 04:35 04:35 WBC 26.7 H RBC 5.60 H Hgb 15.0 Hct 47.0 MCV 84 MCH 26.8 L MCHC 31.9 L RDW 15.6 H Plt Count 253 Sodium 139.9 Potassium 4.2 Chloride 99 Carbon Dioxide 30 Anion Gap 11 BUN 32 H Creatinine 0.85 Est GFR ( Amer) > 60 Est GFR (Non-Af Amer) > 60 Glucose 221 H Calcium 9.5 Magnesium 2.3 08/21/16 00:48 Sputum Gram Stain - Final 08/21/16 00:48 Sputum Sputum Culture - Final NORMAL DON 08/20/16 08/20/16 00:12 00:12 Creatine Kinase 72 CK-MB (CK-2) 1.16 Troponin I < 0.012 Impressions: Chest X-Ray 08/19/16 16:59 IMPRESSION: NO SIGNIFICANT RADIOGRAPHIC FINDING IN THE CHEST. Chest/Abdomen CTA 08/22/16 00:00 IMPRESSION: No CT angio evidence of acute pulmonary emboli or thoracic aortic dissection. Since the prior chest x-ray earlier today, patient has developed diffuse bilateral alveolar infiltrates worrisome for pulmonary edema Assessment & Plan - Diagnosis (1) Acute asthmatic bronchitis Is this a current diagnosis for this admission?: YesPlan: Will continue with steroids as well as nebulizers (2) Pulmonary edema Qualifiers: Chronicity: acute Qualified Code(s): J81.0 - Acute pulmonary edema Is this a current diagnosis for this admission?: YesPlan: Secondary to excessive volume resuscitation. The patient has responded nicely to a dose of Lasix will repeat this and repeat chest x-ray in the a.m. and follow. (3) COPD exacerbation Is this a current diagnosis for this admission?: Yes (4) Acute on chronic respiratory failure with hypoxia and hypercapnia Is this a current diagnosis for this admission?: YesPlan: Will continue C Pap. Continues on O2. (5) Diastolic dysfunction Is this a current diagnosis for this admission?: Yes (6) Hypertension Qualifiers: Hypertension type: essential hypertension Qualified Code(s): I10 - Essential (primary) hypertension Is this a current diagnosis for this admission?: YesPlan: Will hold lisinopril given the patient's hyperkalemia and contrast exposure. Started patient on Norvasc and follow. Added hydralazine (7) Bipolar disorder Qualifiers: Active/Remission status: remission status unspecified Qualified Code (s): F31.9 - Bipolar disorder, unspecified Is this a current diagnosis for this admission?: YesPlan: Will continue home meds (8) Diabetes mellitus type 2 in obese Is this a current diagnosis for this admission?: YesPlan: Will continue current medications (9) Hepatitis B Is this a current diagnosis for this admission?: No (10) Solitary kidney, acquired Is this a current diagnosis for this admission?: Yes (11) Hyperkalemia Is this a current diagnosis for this admission?: YesPlan: Responded to Kayexalate (12) Tobacco dependency Is this a current diagnosis for this admission?: YesPlan: Will continue when necessary nicotine patch (13) Obesity (BMI 30-39.9) Is this a current diagnosis for this admission?: Yes - Time Time Spent with patient: on this visit including assessment, plan, physical examination, and patient education is 35 minutes. Time Spent with patient: 35 or more minutes Medications reviewed and adjusted accordingly: Yes Anticipated discharge: Home Disposition: The patient is a full code. Pending patient's symptomatology and diagnostic findings will reevaluate in the a.m.
[2016-08-23] MEDS: TRAZODONE HCL 50 MG TABLET PO SCH (22:46)
[2016-08-23] MEDS: MONTELUKAST SODIUM 10 MG TABLET PO SCH (22:46)
[2016-08-23] MEDS: CYCLOBENZAPRINE HCL 10 MG TABLET PO SCH (22:46)
[2016-08-23] MEDS: METFORMIN HCL 750 MG PO SCH (22:49)
[2016-08-24] MEDS: ALBUTEROL SULFATE 0.042% NEB (1.25 MG/3 ML) AMPUL NEB PRN (04:09)
[2016-08-24] MEDS: HYDRALAZINE HCL 50 MG TABLET PO SCH ×3 (05:35→22:11)
[2016-08-24] MEDS: METHYLPREDNISOLONE INJ 125 MG/2 ML SDV IV SCH ×3 (05:35→22:11)
[2016-08-24] MEDS: LANSOPRAZOLE 30 MG TAB.RAP.DR PO SCH ×2 (05:35→16:21)
[2016-08-24 05:42] LABS: HEMATOCRIT 44.7 % (36.0-47.0); HEMOGLOBIN 14.8 g/dL (12.0-15.5); HGB HCT DIFFERENCE -0.3; MEAN CORPUSCULAR HEMOGLOBIN 27.3 pg (27.0-33.4); MEAN CORPUSCULAR HGB CONC 33.1 g/dL (32.0-36.0); MEAN CORPUSCULAR VOLUME 82 fl (80-97); RED BLOOD COUNT 5.42 10^6/uL (3.72-5.28); RED CELL DISTRIBUTION WIDTH 15.3 % (11.5-14.0); WHITE BLOOD COUNT 22.1 10^3/uL (4.0-10.5)
[2016-08-24 06:07] LABS: ANION GAP 9 (5-19); BLOOD UREA NITROGEN 40 mg/dL (7-20); CALCIUM 9.1 mg/dL (8.4-10.2); CARBON DIOXIDE 33 mmol/L (22-30); CHLORIDE 97 mmol/L (98-107); CREATININE RESULT 1.04 mg/dL (0.52-1.25); GLUCOSE 270 mg/dL (75-110); MAGNESIUM 2.2 mg/dL (1.6-2.3); POTASSIUM 4.2 mmol/L (3.6-5.0); SODIUM 139.1 mmol/L (137-145)
[2016-08-24] MEDS: OXYCODONE HCL IR 5 MG TABLET PO PRN ×2 (06:22→16:27)
[2016-08-24] MEDS: ALBUTEROL SULFATE 0.083% NEB 2.5 MG/3 ML AMPUL NEB SCH ×3 (07:41→20:17)
[2016-08-24] MEDS: CODEINE SULF 30 MG TABLET PO PRN ×2 (08:18→16:21)
[2016-08-24] MEDS: ENOXAPARIN SODIUM INJ 40 MG/0.4 ML DISP.SYRIN SUBCUT SCH (08:20)
[2016-08-24] MEDS: INSULIN LISPRO 100 UNIT/ML 3 ML VIAL SUBCUT PRN ×3 (08:21→16:18)
[2016-08-24] MEDS: OXYCODONE HCL SR 10 MG TABLET PO SCH ×2 (10:07→22:09)
[2016-08-24] MEDS: GUAIFENESIN 600 MG TABLET.SA PO SCH ×2 (10:07→22:09)
[2016-08-24] MEDS: AMLODIPINE BESYLATE 5 MG TABLET PO SCH ×2 (10:08→22:11)
[2016-08-24] MEDS: CETIRIZINE 10 MG TABLET PO SCH (10:08)
[2016-08-24] MEDS: LACTOBACILLUS ACIDOPHILUS 250 MG TAB PO SCH ×2 (10:08→16:21)
[2016-08-24] MEDS: FLUOXETINE HCL 20 MG CAPSULE PO SCH (10:08)
[2016-08-24] MEDS: FLUTICASONE/SALMETEROL DISKUS 250-50 MCG/DOSE IH SCH ×2 (10:09→22:12)
[2016-08-24] MEDS: BUDESONIDE/FORMOTEROL 160-4.5 MCG 60 PUFF/6 GM MDI IH SCH ×2 (10:09→22:13)
[2016-08-24] MEDS: FLUTICASONE NASAL SPRAY 50 MCG/SPRY 120 SPRAY/16 GM NASL SCH ×2 (10:10→22:12)
[2016-08-24] MEDS: LEVOFLOXACIN 750 MG TABLET PO SCH (11:52)
[2016-08-24] MEDS: NICOTINE 21 MG/24 HR PATCH.TD24 TD PRN (11:53)
--- NOTE | 2016-08-24 14:53 | PDOC PROGRESS REPORT ---
Subjective Progress Note for:: 08/24/16 Subjective:: Patient is a 51-year-old female, seen on morning rounds. She is presently resting comfortably in bed. She states her breathing is feeling somewhat improved from yesterday. She continues however, to become dyspneic with minimal exertion. She states she continues to have productive cough, but this is improving. She denies any headache, chest pain or dizziness. She denies any fever or chills. She denies any nausea, abdominal pain, or diarrhea. Rest of review of systems are negative. Physical Exam Vital Signs: Temp Pulse Resp BP Pulse Ox 97.9 F 114 H 20 169/72 H 92 08/24/16 12:14 08/24/16 13:38 08/24/16 13:38 08/24/16 12:14 08/24/16 13:38 Intake & Output 08/23/16 08/24/16 08/25/16 06:59 06:59 06:59 Intake Total 1587 2278 Output Total 1550 1920 Balance 37 358 Weight 113 kg General appearance: PRESENT: no acute distress, morbidly obese, well-developed, well-nourished Head exam: PRESENT: atraumatic, normocephalic Eye exam: PRESENT: conjunctiva pink, EOMI, PERRLA. ABSENT: scleral icterus Ear exam: PRESENT: normal external ear exam Mouth exam: PRESENT: moist, tongue midline Neck exam: ABSENT: carotid bruit, JVD, lymphadenopathy, thyromegaly Respiratory exam: PRESENT: rhonchi, symmetrical, unlabored Cardiovascular exam: PRESENT: RRR. ABSENT: diastolic murmur, rubs, systolic murmur Pulses: PRESENT: normal dorsalis pedis pul Vascular exam: PRESENT: normal capillary refill GI/Abdominal exam: PRESENT: normal bowel sounds, soft. ABSENT: distended, guarding, mass, organolmegaly, rebound, tenderness Rectal exam: PRESENT: deferred Extremities exam: PRESENT: full ROM. ABSENT: calf tenderness, clubbing, pedal edema Neurological exam: PRESENT: alert, awake, oriented to person, oriented to place , oriented to time, oriented to situation, CN II-XII grossly intact. ABSENT: motor sensory deficit Psychiatric exam: PRESENT: appropriate affect, normal mood. ABSENT: homicidal ideation, suicidal ideation Skin exam: PRESENT: dry, intact, warm. ABSENT: cyanosis, rash Results Laboratory Results: 08/24/16 05:27 08/24/16 05:27 08/24/16 08/24/16 05:27 05:27 WBC 22.1 H RBC 5.42 H Hgb 14.8 Hct 44.7 MCV 82 MCH 27.3 MCHC 33.1 RDW 15.3 H Plt Count 246 Sodium 139.1 Potassium 4.2 Chloride 97 L Carbon Dioxide 33 H Anion Gap 9 BUN 40 H Creatinine 1.04 Est GFR ( Amer) > 60 Est GFR (Non-Af Amer) 56 L Glucose 270 H Calcium 9.1 Magnesium 2.2 08/21/16 00:48 Sputum Gram Stain - Final 08/21/16 00:48 Sputum Sputum Culture - Final NORMAL DON 08/20/16 08/20/16 00:12 00:12 Creatine Kinase 72 CK-MB (CK-2) 1.16 Troponin I < 0.012 Impressions: Chest/Abdomen CTA 08/22/16 00:00 IMPRESSION: No CT angio evidence of acute pulmonary emboli or thoracic aortic dissection. Since the prior chest x-ray earlier today, patient has developed diffuse bilateral alveolar infiltrates worrisome for pulmonary edema Chest X-Ray 08/24/16 06:00 IMPRESSION: Interval worsening of the appearance of the lung steel with diffuse areas of infiltrate/airspace disease bilaterally. Assessment & Plan - Diagnosis (1) Acute on chronic respiratory failure with hypoxia and hypercapnia Is this a current diagnosis for this admission?: YesPlan: Improving with IV steroids, antibiotics and nebulizer treatments. She is no longer hypercapneic, still requiring oxygen however. (2) COPD exacerbation Is this a current diagnosis for this admission?: YesPlan: Continue IV steroids, antibiotics and nebulizer treatments (3) Diabetes mellitus type 2 in obese Is this a current diagnosis for this admission?: YesPlan: Continue current medications and sliding scale coverage (4) Hyperkalemia Is this a current diagnosis for this admission?: YesPlan: Resolved will continue to monitor (5) Pulmonary edema Qualifiers: Chronicity: acute Qualified Code(s): J81.0 - Acute pulmonary edema Is this a current diagnosis for this admission?: YesPlan: Diuresed yesterday. Appears euvolemic today (6) Diastolic dysfunction Is this a current diagnosis for this admission?: YesPlan: Will continue to monitor volume status (7) Hypertension Qualifiers: Hypertension type: essential hypertension Qualified Code(s): I10 - Essential (primary) hypertension Is this a current diagnosis for this admission?: YesPlan: Presently normotensive (8) Solitary kidney, acquired Is this a current diagnosis for this admission?: YesPlan: Monitor BuN/CR after recent CT with contrast and diuresis (9) Tobacco dependency Is this a current diagnosis for this admission?: YesPlan: Patient was counseled. She is adamant she is going to quit after this hospitalization (10) Bipolar disorder Qualifiers: Active/Remission status: remission status unspecified Qualified Code (s): F31.9 - Bipolar disorder, unspecified Is this a current diagnosis for this admission?: YesPlan: Continue present medication and monitor (11) Obesity (BMI 30-39.9) Is this a current diagnosis for this admission?: YesPlan: Counseled, (12) Hepatitis B Is this a current diagnosis for this admission?: No - Time Time Spent with patient: 25-34 minutes Critical Time spent with patient: 25-34 minutes Smoking Cessation Education: 3 to 10 minutes Medications reviewed and adjusted accordingly: Yes Anticipated discharge: Home
[2016-08-24] MEDS: CYCLOBENZAPRINE HCL 10 MG TABLET PO SCH (22:10)
[2016-08-24] MEDS: MONTELUKAST SODIUM 10 MG TABLET PO SCH (22:10)
[2016-08-24] MEDS: TRAZODONE HCL 50 MG TABLET PO SCH (22:10)
[2016-08-24] MEDS: METFORMIN HCL 750 MG PO SCH (22:17)
[2016-08-25] MEDS: CODEINE SULF 30 MG TABLET PO PRN ×2 (00:45→21:51)
[2016-08-25] MEDS: HYDRALAZINE HCL 50 MG TABLET PO SCH ×3 (06:04→21:51)
[2016-08-25] MEDS: LANSOPRAZOLE 30 MG TAB.RAP.DR PO SCH ×2 (06:04→16:19)
[2016-08-25] MEDS: ALBUTEROL SULFATE 0.083% NEB 2.5 MG/3 ML AMPUL NEB SCH ×3 (08:19→20:26)
[2016-08-25 08:33] LABS: ANION GAP 13 (5-19); BLOOD UREA NITROGEN 36 mg/dL (7-20); CALCIUM 9.4 mg/dL (8.4-10.2); CARBON DIOXIDE 30 mmol/L (22-30); CHLORIDE 98 mmol/L (98-107); CREATININE RESULT 0.83 mg/dL (0.52-1.25); GLUCOSE 220 mg/dL (75-110); POTASSIUM 4.8 mmol/L (3.6-5.0); SODIUM 140.6 mmol/L (137-145)
[2016-08-25] MEDS: INSULIN LISPRO 100 UNIT/ML 3 ML VIAL SUBCUT PRN ×3 (09:09→21:50)
[2016-08-25] MEDS: ENOXAPARIN SODIUM INJ 40 MG/0.4 ML DISP.SYRIN SUBCUT SCH (09:12)
[2016-08-25] MEDS: METHYLPREDNISOLONE INJ 125 MG/2 ML SDV IV SCH (09:13)
[2016-08-25] MEDS: CETIRIZINE 10 MG TABLET PO SCH (09:18)
[2016-08-25] MEDS: OXYCODONE HCL SR 10 MG TABLET PO SCH ×2 (09:18→21:52)
[2016-08-25] MEDS: GUAIFENESIN 600 MG TABLET.SA PO SCH ×2 (09:19→21:53)
[2016-08-25] MEDS: LACTOBACILLUS ACIDOPHILUS 250 MG TAB PO SCH ×2 (09:20→17:07)
[2016-08-25] MEDS: FLUOXETINE HCL 20 MG CAPSULE PO SCH (09:20)
[2016-08-25] MEDS: FLUTICASONE/SALMETEROL DISKUS 250-50 MCG/DOSE IH SCH ×2 (09:20→21:53)
[2016-08-25] MEDS: FLUTICASONE NASAL SPRAY 50 MCG/SPRY 120 SPRAY/16 GM NASL SCH ×2 (09:21→21:53)
[2016-08-25] MEDS: BUDESONIDE/FORMOTEROL 160-4.5 MCG 60 PUFF/6 GM MDI IH SCH ×2 (09:21→21:53)
[2016-08-25] MEDS: AMLODIPINE BESYLATE 5 MG TABLET PO SCH ×2 (09:21→21:52)
[2016-08-25] MEDS: LEVOFLOXACIN 750 MG TABLET PO SCH (11:45)
--- NOTE | 2016-08-25 11:50 | PDOC PROGRESS REPORT ---
Subjective Progress Note for:: 08/25/16 Subjective:: Patient is a 51-year-old female, seen on morning rounds. She is presently resting comfortably in bed. She states her breathing is feeling somewhat improved from yesterday. She continues however, to become dyspneic with minimal exertion. She states she continues to have productive cough, but this is improving. She denies any headache, chest pain or dizziness. She denies any fever or chills. She denies any nausea, abdominal pain, or diarrhea. She states she did sleep better last night than she has, but is still exhausted. Rest of review of systems are negative. Physical Exam Vital Signs: Temp Pulse Resp BP Pulse Ox 98.1 F 111 H 22 H 156/115 H 95 08/25/16 08:00 08/25/16 08:00 08/25/16 08:00 08/25/16 08:00 08/25/16 08:00 Intake & Output 08/24/16 08/25/16 08/26/16 06:59 06:59 06:59 Intake Total 2278 1125 Output Total 1920 1200 Balance 358 -75 General appearance: PRESENT: no acute distress, morbidly obese, well-developed, well-nourished Head exam: PRESENT: atraumatic, normocephalic Eye exam: PRESENT: conjunctiva pink, EOMI, PERRLA. ABSENT: scleral icterus Ear exam: PRESENT: normal external ear exam Mouth exam: PRESENT: moist, tongue midline Neck exam: ABSENT: carotid bruit, JVD, lymphadenopathy, thyromegaly Respiratory exam: PRESENT: symmetrical, unlabored - expiratory, wheezes. ABSENT : rales, rhonchi Cardiovascular exam: PRESENT: RRR. ABSENT: diastolic murmur, rubs, systolic murmur Pulses: PRESENT: normal dorsalis pedis pul Vascular exam: PRESENT: normal capillary refill GI/Abdominal exam: PRESENT: normal bowel sounds, soft. ABSENT: distended, guarding, mass, organolmegaly, rebound, tenderness Rectal exam: PRESENT: deferred Extremities exam: PRESENT: full ROM. ABSENT: calf tenderness, clubbing, pedal edema Neurological exam: PRESENT: alert, awake, oriented to person, oriented to place , oriented to time, oriented to situation, CN II-XII grossly intact. ABSENT: motor sensory deficit Psychiatric exam: PRESENT: appropriate affect, normal mood. ABSENT: homicidal ideation, suicidal ideation Skin exam: PRESENT: dry, intact, warm. ABSENT: cyanosis, rash Results Laboratory Results: 08/24/16 05:27 08/25/16 07:57 08/25/16 07:57 Sodium 140.6 Potassium 4.8 Chloride 98 Carbon Dioxide 30 Anion Gap 13 BUN 36 H Creatinine 0.83 Est GFR ( Amer) > 60 Est GFR (Non-Af Amer) > 60 Glucose 220 H Calcium 9.4 08/20/16 08/20/16 00:12 00:12 Creatine Kinase 72 CK-MB (CK-2) 1.16 Troponin I < 0.012 Impressions: Chest/Abdomen CTA 08/22/16 00:00 IMPRESSION: No CT angio evidence of acute pulmonary emboli or thoracic aortic dissection. Since the prior chest x-ray earlier today, patient has developed diffuse bilateral alveolar infiltrates worrisome for pulmonary edema Chest X-Ray 08/24/16 06:00 IMPRESSION: Interval worsening of the appearance of the lung steel with diffuse areas of infiltrate/airspace disease bilaterally. Assessment & Plan - Diagnosis (1) Acute on chronic respiratory failure with hypoxia and hypercapnia Is this a current diagnosis for this admission?: YesPlan: Improving with IV steroids, antibiotics and nebulizer treatments. She is no longer hypercapneic, still requiring oxygen however. (2) COPD exacerbation Is this a current diagnosis for this admission?: YesPlan: Continue IV steroids, antibiotics and nebulizer treatments (3) Diabetes mellitus type 2 in obese Is this a current diagnosis for this admission?: YesPlan: Continue current medications and sliding scale coverage (4) Hyperkalemia Is this a current diagnosis for this admission?: YesPlan: Resolved will continue to monitor (5) Pulmonary edema Qualifiers: Chronicity: acute Qualified Code(s): J81.0 - Acute pulmonary edema Is this a current diagnosis for this admission?: YesPlan: Diuresed yesterday. Appears euvolemic today (6) Diastolic dysfunction Is this a current diagnosis for this admission?: YesPlan: Will continue to monitor volume status (7) Hypertension Qualifiers: Hypertension type: essential hypertension Qualified Code(s): I10 - Essential (primary) hypertension Is this a current diagnosis for this admission?: YesPlan: Presently normotensive (8) Solitary kidney, acquired Is this a current diagnosis for this admission?: YesPlan: Monitor BuN/CR after recent CT with contrast and diuresis (9) Tobacco dependency Is this a current diagnosis for this admission?: YesPlan: Patient was counseled. She is adamant she is going to quit after this hospitalization (10) Bipolar disorder Qualifiers: Active/Remission status: remission status unspecified Qualified Code (s): F31.9 - Bipolar disorder, unspecified Is this a current diagnosis for this admission?: YesPlan: Continue present medication and monitor (11) Obesity (BMI 30-39.9) Is this a current diagnosis for this admission?: YesPlan: Counseled, (12) Hepatitis B Is this a current diagnosis for this admission?: No - Time Time Spent with patient: 25-34 minutes Critical Time spent with patient: 15-24 minutes Smoking Cessation Education: 3 to 10 minutes Medications reviewed and adjusted accordingly: Yes Anticipated discharge: Home
[2016-08-25] MEDS: ACETAMINOPHEN 325 MG TABLET PO PRN (12:05)
[2016-08-25] MEDS: NICOTINE 21 MG/24 HR PATCH.TD24 TD PRN (15:31)
[2016-08-25] MEDS: OXYCODONE HCL IR 5 MG TABLET PO PRN (15:32)
[2016-08-25] MEDS: LISINOPRIL 10 MG TABLET PO SCH (21:50)
[2016-08-25] MEDS: TRAZODONE HCL 50 MG TABLET PO SCH (21:52)
[2016-08-25] MEDS: CYCLOBENZAPRINE HCL 10 MG TABLET PO SCH (21:52)
[2016-08-25] MEDS: MONTELUKAST SODIUM 10 MG TABLET PO SCH (21:52)
[2016-08-25] MEDS: METFORMIN HCL 750 MG PO SCH (22:00)
[2016-08-25] MEDS ORDERED: TRAZODONE HCL 50 MG TABLET PO SCH (22:00)
[2016-08-26] MEDS: HYDRALAZINE HCL 50 MG TABLET PO SCH ×3 (05:48→21:57)
[2016-08-26] MEDS: LANSOPRAZOLE 30 MG TAB.RAP.DR PO SCH ×2 (05:49→17:02)
[2016-08-26] MEDS: ALBUTEROL SULFATE 0.083% NEB 2.5 MG/3 ML AMPUL NEB SCH ×3 (08:56→19:38)
[2016-08-26] MEDS: FLUTICASONE/SALMETEROL DISKUS 250-50 MCG/DOSE IH SCH ×2 (10:12→21:58)
[2016-08-26] MEDS: BUDESONIDE/FORMOTEROL 160-4.5 MCG 60 PUFF/6 GM MDI IH SCH ×2 (10:12→21:58)
[2016-08-26] MEDS: FLUTICASONE NASAL SPRAY 50 MCG/SPRY 120 SPRAY/16 GM NASL SCH ×2 (10:13→21:57)
[2016-08-26] MEDS: NICOTINE 21 MG/24 HR PATCH.TD24 TD SCH (10:13)
[2016-08-26] MEDS: FLUOXETINE HCL 20 MG CAPSULE PO SCH (10:29)
[2016-08-26] MEDS: LACTOBACILLUS ACIDOPHILUS 250 MG TAB PO SCH ×2 (10:29→17:05)
[2016-08-26] MEDS: GUAIFENESIN 600 MG TABLET.SA PO SCH ×2 (10:29→21:57)
[2016-08-26] MEDS: CETIRIZINE 10 MG TABLET PO SCH (10:30)
[2016-08-26] MEDS: AMLODIPINE BESYLATE 5 MG TABLET PO SCH ×2 (10:30→21:57)
[2016-08-26] MEDS: PREDNISONE 20 MG TABLET PO SCH (10:30)
[2016-08-26] MEDS: LISINOPRIL 10 MG TABLET PO SCH ×2 (10:31→21:56)
[2016-08-26] MEDS: OXYCODONE HCL SR 10 MG TABLET PO SCH ×2 (10:31→21:56)
[2016-08-26] MEDS: MELOXICAM 15 MG TABLET PO SCH (10:34)
[2016-08-26] MEDS: ENOXAPARIN SODIUM INJ 40 MG/0.4 ML DISP.SYRIN SUBCUT SCH (10:36)
--- NOTE | 2016-08-26 11:01 | PDOC PROGRESS REPORT ---
Subjective Progress Note for:: 08/26/16 Subjective:: Patient is a 51-year-old female, seen on morning rounds. She is presently resting comfortably in bed. She states her breathing is feeling somewhat improved from yesterday. She continues however, to become dyspneic with exertion. She did walk in the hallway last night on oxygen. She states she continues to have productive cough, but this is improving. She denies any headache, chest pain or dizziness. She denies any fever or chills. She denies any nausea, abdominal pain, or diarrhea. She states she did sleep better last night than she has, but is still exhausted. Rest of review of systems are negative. Physical Exam Vital Signs: Temp Pulse Resp BP Pulse Ox 98.1 F 98 18 151/71 H 94 08/26/16 07:43 08/26/16 08:56 08/26/16 08:56 08/26/16 07:43 08/26/16 08:56 Intake & Output 08/25/16 08/26/16 08/27/16 06:59 06:59 06:59 Intake Total 1125 1500 Output Total 1200 400 Balance -75 1100 Weight 115 kg General appearance: PRESENT: no acute distress, morbidly obese, well-developed, well-nourished Head exam: PRESENT: atraumatic, normocephalic Eye exam: PRESENT: conjunctiva pink, EOMI, PERRLA. ABSENT: scleral icterus Ear exam: PRESENT: normal external ear exam Mouth exam: PRESENT: moist, tongue midline Neck exam: ABSENT: carotid bruit, JVD, lymphadenopathy, thyromegaly Respiratory exam: PRESENT: clear to auscultation vani. ABSENT: rales, rhonchi, wheezes Cardiovascular exam: PRESENT: RRR. ABSENT: diastolic murmur, rubs, systolic murmur Pulses: PRESENT: normal dorsalis pedis pul Vascular exam: PRESENT: normal capillary refill GI/Abdominal exam: PRESENT: normal bowel sounds, soft. ABSENT: distended, guarding, mass, organolmegaly, rebound, tenderness Rectal exam: PRESENT: deferred Extremities exam: PRESENT: full ROM. ABSENT: calf tenderness, clubbing, pedal edema Neurological exam: PRESENT: alert, awake, oriented to person, oriented to place , oriented to time, oriented to situation, CN II-XII grossly intact. ABSENT: motor sensory deficit Psychiatric exam: PRESENT: appropriate affect, normal mood. ABSENT: homicidal ideation, suicidal ideation Skin exam: PRESENT: dry, intact, warm. ABSENT: cyanosis, rash Results Laboratory Results: 08/24/16 05:27 08/25/16 07:57 08/20/16 08/20/16 00:12 00:12 Creatine Kinase 72 CK-MB (CK-2) 1.16 Troponin I < 0.012 Impressions: Chest/Abdomen CTA 08/22/16 00:00 IMPRESSION: No CT angio evidence of acute pulmonary emboli or thoracic aortic dissection. Since the prior chest x-ray earlier today, patient has developed diffuse bilateral alveolar infiltrates worrisome for pulmonary edema Chest X-Ray 08/24/16 06:00 IMPRESSION: Interval worsening of the appearance of the lung steel with diffuse areas of infiltrate/airspace disease bilaterally. Assessment & Plan - Diagnosis (1) Acute on chronic respiratory failure with hypoxia and hypercapnia Is this a current diagnosis for this admission?: YesPlan: Improving with IV steroids, antibiotics and nebulizer treatments. She is no longer hypercapneic, still requiring oxygen however. (2) COPD exacerbation Is this a current diagnosis for this admission?: YesPlan: Continue oral prednisone, antibiotics and nebulizer treatments (3) Diabetes mellitus type 2 in obese Is this a current diagnosis for this admission?: YesPlan: Continue current medications and sliding scale coverage (4) Hyperkalemia Is this a current diagnosis for this admission?: YesPlan: Resolved will continue to monitor (5) Pulmonary edema Qualifiers: Chronicity: acute Qualified Code(s): J81.0 - Acute pulmonary edema Is this a current diagnosis for this admission?: YesPlan: Diuresed yesterday. Appears euvolemic today (6) Diastolic dysfunction Is this a current diagnosis for this admission?: YesPlan: Will continue to monitor volume status (7) Hypertension Qualifiers: Hypertension type: essential hypertension Qualified Code(s): I10 - Essential (primary) hypertension Is this a current diagnosis for this admission?: YesPlan: Presently normotensive (8) Solitary kidney, acquired Is this a current diagnosis for this admission?: YesPlan: Monitor BuN/CR after recent CT with contrast and diuresis (9) Tobacco dependency Is this a current diagnosis for this admission?: YesPlan: Patient was counseled. She is adamant she is going to quit after this hospitalization (10) Bipolar disorder Qualifiers: Active/Remission status: remission status unspecified Qualified Code (s): F31.9 - Bipolar disorder, unspecified Is this a current diagnosis for this admission?: YesPlan: Continue present medication and monitor (11) Obesity (BMI 30-39.9) Is this a current diagnosis for this admission?: YesPlan: Counseled, (12) Hepatitis B Is this a current diagnosis for this admission?: No - Time Time Spent with patient: 25-34 minutes Critical Time spent with patient: 15-24 minutes Smoking Cessation Education: 3 to 10 minutes Medications reviewed and adjusted accordingly: Yes Anticipated discharge: Home - Inpatient Certification Based on my medical assessment, after consideration of the patient's comorbidities, presenting symptoms, or acuity I expect that the services needed warrant INPATIENT care.: Yes I certify that my determination is in accordance with my understanding of Medicare's requirements for reasonable and necessary INPATIENT services [42 CFR 412.3e].: Yes
[2016-08-26] MEDS: LEVOFLOXACIN 750 MG TABLET PO SCH (11:27)
[2016-08-26] MEDS: OXYCODONE HCL IR 5 MG TABLET PO PRN (13:22)
[2016-08-26] MEDS: INSULIN LISPRO 100 UNIT/ML 3 ML VIAL SUBCUT PRN ×3 (13:25→21:56)
[2016-08-26] MEDS: MONTELUKAST SODIUM 10 MG TABLET PO SCH (21:56)
[2016-08-26] MEDS: TRAZODONE HCL 50 MG TABLET PO SCH (21:57)
[2016-08-26] MEDS: CYCLOBENZAPRINE HCL 10 MG TABLET PO SCH (21:57)
[2016-08-26] MEDS: METFORMIN HCL 750 MG PO SCH (22:00)
[2016-08-27] MEDS: CODEINE SULF 30 MG TABLET PO PRN ×2 (00:15→22:28)
[2016-08-27] MEDS: HYDRALAZINE HCL 50 MG TABLET PO SCH ×3 (06:08→22:28)
[2016-08-27] MEDS: LANSOPRAZOLE 30 MG TAB.RAP.DR PO SCH ×2 (06:09→18:10)
[2016-08-27 06:38] LABS: HEMATOCRIT 42.3 % (36.0-47.0); HEMOGLOBIN 13.8 g/dL (12.0-15.5); HGB HCT DIFFERENCE -0.9; MEAN CORPUSCULAR HEMOGLOBIN 27.5 pg (27.0-33.4); MEAN CORPUSCULAR HGB CONC 32.7 g/dL (32.0-36.0); MEAN CORPUSCULAR VOLUME 84 fl (80-97); RED BLOOD COUNT 5.03 10^6/uL (3.72-5.28); RED CELL DISTRIBUTION WIDTH 15.2 % (11.5-14.0); WHITE BLOOD COUNT 21.5 10^3/uL (4.0-10.5)
[2016-08-27 07:00] LABS: ANION GAP 6 (5-19); BLOOD UREA NITROGEN 32 mg/dL (7-20); CALCIUM 8.6 mg/dL (8.4-10.2); CARBON DIOXIDE 34 mmol/L (22-30); CHLORIDE 95 mmol/L (98-107); CREATININE RESULT 0.91 mg/dL (0.52-1.25); GLUCOSE 189 mg/dL (75-110); POTASSIUM 4.6 mmol/L (3.6-5.0); SODIUM 135.2 mmol/L (137-145)
[2016-08-27 07:21] LABS: BASOPHILS % (MANUAL) 0 % (0-2); EOSINOPHILS % (MANUAL) 0 % (0-6); LYMPHOCYTES % (MANUAL) 13 % (13-45); TOTAL CELLS COUNTED 100
[2016-08-27 07:22] LABS: ANISOCYTOSIS SLIGHT; TOXIC GRANULATION SLIGHT
[2016-08-27] MEDS: ALBUTEROL SULFATE 0.083% NEB 2.5 MG/3 ML AMPUL NEB SCH ×3 (08:56→21:21)
[2016-08-27] MEDS: NICOTINE 21 MG/24 HR PATCH.TD24 TD SCH (10:11)
[2016-08-27] MEDS: OXYCODONE HCL SR 10 MG TABLET PO SCH ×2 (10:12→22:27)
[2016-08-27] MEDS: PREDNISONE 20 MG TABLET PO SCH (10:12)
[2016-08-27] MEDS: ENOXAPARIN SODIUM INJ 40 MG/0.4 ML DISP.SYRIN SUBCUT SCH (10:12)
[2016-08-27] MEDS: INSULIN LISPRO 100 UNIT/ML 3 ML VIAL SUBCUT PRN ×2 (10:12→22:26)
[2016-08-27] MEDS: LACTOBACILLUS ACIDOPHILUS 250 MG TAB PO SCH ×2 (10:12→18:13)
[2016-08-27] MEDS: GUAIFENESIN 600 MG TABLET.SA PO SCH ×2 (10:12→22:27)
[2016-08-27] MEDS: LISINOPRIL 10 MG TABLET PO SCH ×2 (10:13→22:28)
[2016-08-27] MEDS: CETIRIZINE 10 MG TABLET PO SCH (10:13)
[2016-08-27] MEDS: FLUOXETINE HCL 20 MG CAPSULE PO SCH (10:13)
[2016-08-27] MEDS: AMLODIPINE BESYLATE 5 MG TABLET PO SCH ×2 (10:13→22:27)
[2016-08-27] MEDS: BUDESONIDE/FORMOTEROL 160-4.5 MCG 60 PUFF/6 GM MDI IH SCH ×2 (10:19→22:29)
[2016-08-27] MEDS: FLUTICASONE/SALMETEROL DISKUS 250-50 MCG/DOSE IH SCH ×2 (10:19→22:29)
[2016-08-27] MEDS: FLUTICASONE NASAL SPRAY 50 MCG/SPRY 120 SPRAY/16 GM NASL SCH ×2 (10:20→22:29)
[2016-08-27] MEDS: MELOXICAM 15 MG TABLET PO SCH (14:42)
--- NOTE | 2016-08-27 15:13 | PDOC PROGRESS REPORT ---
Subjective Progress Note for:: 08/27/16 Subjective:: Patient is a 51-year-old female, seen on morning rounds. She is presently resting comfortably in bed. She states her breathing is feeling somewhat improved from yesterday. She continues however, to become dyspneic with exertion. She did walk in the hallway last night on oxygen. She states she continues to have productive cough, but this is improving. She denies any headache, chest pain or dizziness. She denies any fever or chills. She denies any nausea, abdominal pain, or diarrhea. She states she did sleep better last night than she has, but is still exhausted. Rest of review of systems are negative. Physical Exam Vital Signs: Temp Pulse Resp BP Pulse Ox 97.6 F 103 H 20 148/54 H 2 L 08/27/16 12:00 08/27/16 13:28 08/27/16 13:28 08/27/16 08:06 08/27/16 13:28 Intake & Output 08/26/16 08/27/16 08/28/16 06:59 06:59 06:59 Intake Total 1500 1700 Output Total 400 Balance 1100 1700 Weight 115 kg 115 kg General appearance: PRESENT: no acute distress, morbidly obese, well-developed, well-nourished Head exam: PRESENT: atraumatic, normocephalic Eye exam: PRESENT: conjunctiva pink, EOMI, PERRLA. ABSENT: scleral icterus Ear exam: PRESENT: normal external ear exam Mouth exam: PRESENT: moist, tongue midline Neck exam: ABSENT: carotid bruit, JVD, lymphadenopathy, thyromegaly Respiratory exam: PRESENT: clear to auscultation vani. ABSENT: rales, rhonchi, wheezes Pulses: PRESENT: normal dorsalis pedis pul Vascular exam: PRESENT: normal capillary refill GI/Abdominal exam: PRESENT: normal bowel sounds, soft. ABSENT: distended, guarding, mass, organolmegaly, rebound, tenderness Rectal exam: PRESENT: deferred Extremities exam: PRESENT: full ROM. ABSENT: calf tenderness, clubbing, pedal edema Neurological exam: PRESENT: alert, awake, oriented to person, oriented to place , oriented to time, oriented to situation, CN II-XII grossly intact. ABSENT: motor sensory deficit Psychiatric exam: PRESENT: appropriate affect, normal mood. ABSENT: homicidal ideation, suicidal ideation Skin exam: PRESENT: dry, intact, warm. ABSENT: cyanosis, rash Results Laboratory Results: 08/27/16 06:00 08/27/16 06:00 08/27/16 08/27/16 06:00 06:00 WBC 21.5 H RBC 5.03 Hgb 13.8 Hct 42.3 MCV 84 MCH 27.5 MCHC 32.7 RDW 15.2 H Plt Count 238 Seg Neutrophils % Not Reportable Lymphocytes % Not Reportable Monocytes % Not Reportable Eosinophils % Not Reportable Basophils % Not Reportable Absolute Neutrophils Not Reportable Absolute Lymphocytes Not Reportable Absolute Monocytes Not Reportable Absolute Eosinophils Not Reportable Absolute Basophils Not Reportable Sodium 135.2 L Potassium 4.6 Chloride 95 L Carbon Dioxide 34 H Anion Gap 6 BUN 32 H Creatinine 0.91 Est GFR ( Amer) > 60 Est GFR (Non-Af Amer) > 60 Glucose 189 H Calcium 8.6 08/20/16 08/20/16 00:12 00:12 Creatine Kinase 72 CK-MB (CK-2) 1.16 Troponin I < 0.012 Impressions: Chest/Abdomen CTA 08/22/16 00:00 IMPRESSION: No CT angio evidence of acute pulmonary emboli or thoracic aortic dissection. Since the prior chest x-ray earlier today, patient has developed diffuse bilateral alveolar infiltrates worrisome for pulmonary edema Chest X-Ray 08/24/16 06:00 IMPRESSION: Interval worsening of the appearance of the lung steel with diffuse areas of infiltrate/airspace disease bilaterally. Assessment & Plan - Diagnosis (1) Acute on chronic respiratory failure with hypoxia and hypercapnia Is this a current diagnosis for this admission?: YesPlan: Improving with steroids, antibiotics and nebulizer treatments. She is no longer hypercapneic, still requiring oxygen however. Cough and lung sounds are improving (2) COPD exacerbation Is this a current diagnosis for this admission?: YesPlan: Continue oral prednisone, antibiotics and nebulizer treatments (3) Diabetes mellitus type 2 in obese Is this a current diagnosis for this admission?: YesPlan: Continue current medications and sliding scale coverage (4) Hyperkalemia Is this a current diagnosis for this admission?: YesPlan: Resolved will continue to monitor (5) Pulmonary edema Qualifiers: Chronicity: acute Qualified Code(s): J81.0 - Acute pulmonary edema Is this a current diagnosis for this admission?: YesPlan: Diuresed yesterday. Appears euvolemic today (6) Diastolic dysfunction Is this a current diagnosis for this admission?: YesPlan: Will continue to monitor volume status (7) Hypertension Qualifiers: Hypertension type: essential hypertension Qualified Code(s): I10 - Essential (primary) hypertension Is this a current diagnosis for this admission?: YesPlan: Presently normotensive (8) Solitary kidney, acquired Is this a current diagnosis for this admission?: YesPlan: Monitor BuN/CR after recent CT with contrast and diuresis (9) Tobacco dependency Is this a current diagnosis for this admission?: YesPlan: Patient was counseled. She is adamant she is going to quit after this hospitalization (10) Bipolar disorder Qualifiers: Active/Remission status: remission status unspecified Qualified Code (s): F31.9 - Bipolar disorder, unspecified Is this a current diagnosis for this admission?: YesPlan: Continue present medication and monitor (11) Obesity (BMI 30-39.9) Is this a current diagnosis for this admission?: YesPlan: Counseled, (12) Hepatitis B Is this a current diagnosis for this admission?: NoPlan: Patient is stable. No acute symptoms - Time Time Spent with patient: 25-34 minutes Critical Time spent with patient: 15-24 minutes Medications reviewed and adjusted accordingly: Yes
[2016-08-27] MEDS: METFORMIN HCL 750 MG PO SCH (22:00)
[2016-08-27] MEDS: CYCLOBENZAPRINE HCL 10 MG TABLET PO SCH (22:27)
[2016-08-27] MEDS: TRAZODONE HCL 50 MG TABLET PO SCH (22:27)
[2016-08-27] MEDS: MONTELUKAST SODIUM 10 MG TABLET PO SCH (22:28)
[2016-08-28] MEDS: HYDRALAZINE HCL 50 MG TABLET PO SCH ×3 (05:54→22:48)
[2016-08-28] MEDS: LANSOPRAZOLE 30 MG TAB.RAP.DR PO SCH ×2 (05:55→16:52)
[2016-08-28] MEDS: ALBUTEROL SULFATE 0.083% NEB 2.5 MG/3 ML AMPUL NEB SCH (08:44)
[2016-08-28] MEDS: ENOXAPARIN SODIUM INJ 40 MG/0.4 ML DISP.SYRIN SUBCUT SCH (09:12)
[2016-08-28] MEDS: INSULIN LISPRO 100 UNIT/ML 3 ML VIAL SUBCUT PRN ×3 (09:13→17:55)
[2016-08-28] MEDS: BUDESONIDE/FORMOTEROL 160-4.5 MCG 60 PUFF/6 GM MDI IH SCH ×2 (09:16→22:46)
[2016-08-28] MEDS: FLUTICASONE NASAL SPRAY 50 MCG/SPRY 120 SPRAY/16 GM NASL SCH ×2 (09:17→22:47)
[2016-08-28] MEDS: FLUTICASONE/SALMETEROL DISKUS 250-50 MCG/DOSE IH SCH (09:17)
[2016-08-28] MEDS: GUAIFENESIN 600 MG TABLET.SA PO SCH ×2 (09:17→22:48)
[2016-08-28] MEDS: FLUOXETINE HCL 20 MG CAPSULE PO SCH (09:17)
[2016-08-28] MEDS: NICOTINE 21 MG/24 HR PATCH.TD24 TD SCH (09:17)
[2016-08-28] MEDS: AMLODIPINE BESYLATE 5 MG TABLET PO SCH ×2 (09:18→22:46)
[2016-08-28] MEDS: CETIRIZINE 10 MG TABLET PO SCH (09:18)
[2016-08-28] MEDS: LACTOBACILLUS ACIDOPHILUS 250 MG TAB PO SCH ×2 (09:18→17:55)
[2016-08-28] MEDS: PREDNISONE 20 MG TABLET PO SCH (09:19)
[2016-08-28] MEDS: LISINOPRIL 10 MG TABLET PO SCH ×2 (09:19→22:48)
[2016-08-28] MEDS: MELOXICAM 15 MG TABLET PO SCH (09:20)
[2016-08-28] MEDS: CODEINE SULF 30 MG TABLET PO PRN (09:27)
[2016-08-28] MEDS ORDERED: OXYCODONE HCL SR 10 MG TABLET PO SCH (10:00)
[2016-08-28] MEDS: OXYCODONE HCL SR 10 MG TABLET PO SCH ×2 (10:07→22:50)
[2016-08-28] MEDS ORDERED: LEVALBUTEROL HCL NEB 1.25 MG/3 ML AMPUL NEB PRN (11:08)
--- NOTE | 2016-08-28 11:15 | PDOC PROGRESS REPORT ---
Subjective Progress Note for:: 08/28/16 Subjective:: Patient is a 51-year-old female, seen on morning rounds. She is presently resting comfortably in bed. She states her breathing is feeling somewhat improved from yesterday. She continues however, to become dyspneic with exertion. She did walk in the hallway last night on oxygen. She states she continues to have productive cough, but this is improving. She denies any headache, chest pain or dizziness. She denies any fever or chills. She denies any nausea, abdominal pain, or diarrhea. She states she did sleep better last night than she has, but is still exhausted. Rest of review of systems are negative. Physical Exam Vital Signs: Temp Pulse Resp BP Pulse Ox 98.1 F 123 H 18 156/69 H 90 L 08/28/16 07:37 08/28/16 08:44 08/28/16 08:44 08/28/16 07:37 08/28/16 08:44 Intake & Output 08/27/16 08/28/16 08/29/16 06:59 06:59 06:59 Intake Total 1700 1620 Balance 1700 1620 Weight 115 kg 115 kg General appearance: PRESENT: no acute distress, morbidly obese, well-developed, well-nourished Head exam: PRESENT: atraumatic, normocephalic Eye exam: PRESENT: conjunctiva pink, EOMI, PERRLA. ABSENT: scleral icterus Ear exam: PRESENT: normal external ear exam Mouth exam: PRESENT: moist, tongue midline Neck exam: ABSENT: carotid bruit, JVD, lymphadenopathy, thyromegaly Respiratory exam: PRESENT: clear to auscultation vani, decreased breath sounds, symmetrical, unlabored Cardiovascular exam: PRESENT: RRR. ABSENT: diastolic murmur, rubs, systolic murmur Pulses: PRESENT: normal dorsalis pedis pul Vascular exam: PRESENT: normal capillary refill GI/Abdominal exam: PRESENT: normal bowel sounds, soft. ABSENT: distended, guarding, mass, organolmegaly, rebound, tenderness Rectal exam: PRESENT: deferred Extremities exam: PRESENT: full ROM. ABSENT: calf tenderness, clubbing, pedal edema Neurological exam: PRESENT: alert, awake, oriented to person, oriented to place , oriented to time, oriented to situation, CN II-XII grossly intact. ABSENT: motor sensory deficit Results Laboratory Results: 08/27/16 06:00 08/27/16 06:00 08/20/16 08/20/16 00:12 00:12 Creatine Kinase 72 CK-MB (CK-2) 1.16 Troponin I < 0.012 Impressions: Chest/Abdomen CTA 08/22/16 00:00 IMPRESSION: No CT angio evidence of acute pulmonary emboli or thoracic aortic dissection. Since the prior chest x-ray earlier today, patient has developed diffuse bilateral alveolar infiltrates worrisome for pulmonary edema Chest X-Ray 08/24/16 06:00 IMPRESSION: Interval worsening of the appearance of the lung steel with diffuse areas of infiltrate/airspace disease bilaterally. Assessment & Plan - Diagnosis (1) Acute on chronic respiratory failure with hypoxia and hypercapnia Is this a current diagnosis for this admission?: Yes (2) COPD exacerbation Is this a current diagnosis for this admission?: YesPlan: Continue oral prednisone, antibiotics and nebulizer treatments (3) Diabetes mellitus type 2 in obese Is this a current diagnosis for this admission?: YesPlan: Continue current medications and sliding scale coverage (4) Hyperkalemia Is this a current diagnosis for this admission?: YesPlan: Resolved will continue to monitor (5) Pulmonary edema Qualifiers: Chronicity: acute Qualified Code(s): J81.0 - Acute pulmonary edema Is this a current diagnosis for this admission?: YesPlan: Diuresed yesterday. Appears euvolemic today (6) Diastolic dysfunction Is this a current diagnosis for this admission?: YesPlan: Will continue to monitor volume status (7) Hypertension Qualifiers: Hypertension type: essential hypertension Qualified Code(s): I10 - Essential (primary) hypertension Is this a current diagnosis for this admission?: YesPlan: Presently normotensive (8) Solitary kidney, acquired Is this a current diagnosis for this admission?: YesPlan: Monitor BuN/CR after recent CT with contrast and diuresis (9) Tobacco dependency Is this a current diagnosis for this admission?: YesPlan: Patient was counseled. She is adamant she is going to quit after this hospitalization (10) Bipolar disorder Qualifiers: Active/Remission status: remission status unspecified Qualified Code (s): F31.9 - Bipolar disorder, unspecified Is this a current diagnosis for this admission?: YesPlan: Continue present medication and monitor (11) Obesity (BMI 30-39.9) Is this a current diagnosis for this admission?: YesPlan: Counseled, (12) Hepatitis B Is this a current diagnosis for this admission?: NoPlan: Patient is stable. No acute symptoms - Time Time Spent with patient: 25-34 minutes Critical Time spent with patient: 15-24 minutes Smoking Cessation Education: 3 to 10 minutes Medications reviewed and adjusted accordingly: Yes Anticipated discharge: Home
[2016-08-28] MEDS ORDERED: TIOTROPIUM BROMIDE DPI 5 CAP/KIT (18 MCG/CAP) IH ONE (13:00)
[2016-08-28] MEDS: CYCLOBENZAPRINE HCL 10 MG TABLET PO SCH (22:46)
[2016-08-28] MEDS: METFORMIN HCL 750 MG PO SCH (22:48)
[2016-08-28] MEDS: MONTELUKAST SODIUM 10 MG TABLET PO SCH (22:49)
[2016-08-28] MEDS: TRAZODONE HCL 50 MG TABLET PO SCH (22:51)
[2016-08-29] MEDS: INSULIN LISPRO 100 UNIT/ML 3 ML VIAL SUBCUT PRN ×4 (00:15→22:45)
[2016-08-29] MEDS: OXYCODONE HCL IR 5 MG TABLET PO PRN ×2 (04:36→13:07)
[2016-08-29 05:39] LABS: HEMATOCRIT 42.3 % (36.0-47.0); HEMOGLOBIN 13.9 g/dL (12.0-15.5); HGB HCT DIFFERENCE -0.6; MEAN CORPUSCULAR HEMOGLOBIN 27.2 pg (27.0-33.4); MEAN CORPUSCULAR HGB CONC 32.8 g/dL (32.0-36.0); MEAN CORPUSCULAR VOLUME 83 fl (80-97); RED BLOOD COUNT 5.11 10^6/uL (3.72-5.28); RED CELL DISTRIBUTION WIDTH 14.9 % (11.5-14.0); WHITE BLOOD COUNT 19.6 10^3/uL (4.0-10.5)
[2016-08-29 06:01] LABS: ANION GAP 8 (5-19); BLOOD UREA NITROGEN 26 mg/dL (7-20); CARBON DIOXIDE 32 mmol/L (22-30); CHLORIDE 95 mmol/L (98-107); CREATININE RESULT 0.86 mg/dL (0.52-1.25); GLUCOSE 100 mg/dL (75-110); POTASSIUM 4.3 mmol/L (3.6-5.0); SODIUM 135.3 mmol/L (137-145)
[2016-08-29] MEDS: LANSOPRAZOLE 30 MG TAB.RAP.DR PO SCH ×2 (06:08→17:59)
[2016-08-29] MEDS: HYDRALAZINE HCL 50 MG TABLET PO SCH ×2 (06:09→13:08)
[2016-08-29 06:18] LABS: BASOPHILS % (MANUAL) 0 % (0-2); EOSINOPHILS % (MANUAL) 0 % (0-6); LYMPHOCYTES % (MANUAL) 15 % (13-45); TOTAL CELLS COUNTED 100
[2016-08-29 06:19] LABS: ANISOCYTOSIS SLIGHT; TOXIC GRANULATION SLIGHT
[2016-08-29] MEDS: ENOXAPARIN SODIUM INJ 40 MG/0.4 ML DISP.SYRIN SUBCUT SCH (07:28)
[2016-08-29] MEDS: GUAIFENESIN 600 MG TABLET.SA PO SCH ×2 (10:19→22:46)
[2016-08-29] MEDS: NICOTINE 21 MG/24 HR PATCH.TD24 TD SCH (10:19)
[2016-08-29] MEDS: FLUOXETINE HCL 20 MG CAPSULE PO SCH (10:19)
[2016-08-29] MEDS: LISINOPRIL 10 MG TABLET PO SCH ×2 (10:20→22:47)
[2016-08-29] MEDS: AMLODIPINE BESYLATE 5 MG TABLET PO SCH ×2 (10:20→22:46)
[2016-08-29] MEDS: PREDNISONE 20 MG TABLET PO SCH (10:20)
[2016-08-29] MEDS: CETIRIZINE 10 MG TABLET PO SCH (10:21)
[2016-08-29] MEDS: OXYCODONE HCL SR 10 MG TABLET PO SCH ×2 (10:21→22:48)
[2016-08-29] MEDS: LACTOBACILLUS ACIDOPHILUS 250 MG TAB PO SCH ×2 (10:21→17:59)
[2016-08-29] MEDS: FLUTICASONE NASAL SPRAY 50 MCG/SPRY 120 SPRAY/16 GM NASL SCH ×2 (10:22→22:50)
[2016-08-29] MEDS: BUDESONIDE/FORMOTEROL 160-4.5 MCG 60 PUFF/6 GM MDI IH SCH ×2 (10:22→22:51)
[2016-08-29] MEDS: TIOTROPIUM BROMIDE DPI 5 CAP/KIT (18 MCG/CAP) IH SCH (10:22)
[2016-08-29] MEDS: MELOXICAM 15 MG TABLET PO SCH (10:23)
--- NOTE | 2016-08-29 12:53 | PDOC PROGRESS REPORT ---
Subjective Progress Note for:: 08/29/16 Subjective:: Patient is a 51-year-old female, seen on morning rounds. She is presently resting comfortably in bed. She states her breathing is feeling somewhat improved from yesterday. She continues however, to become dyspneic with exertion. She did walk in the hallway last night on room air and SPO2 dropped to 87%. She states she continues to have productive cough, but this is improving. She denies any headache, chest pain or dizziness. She denies any fever or chills. She denies any nausea, abdominal pain, or diarrhea. She states she did sleep better last night. Rest of review of systems are negative. Physical Exam Vital Signs: Temp Pulse Resp BP Pulse Ox 98.7 F 108 H 22 H 119/44 L 93 08/29/16 11:32 08/29/16 11:32 08/29/16 11:32 08/29/16 11:32 08/29/16 11:32 Intake & Output 08/28/16 08/29/16 08/30/16 06:59 06:59 06:59 Intake Total 1620 1400 Balance 1620 1400 Weight 115 kg 115 kg General appearance: PRESENT: no acute distress, well-developed, well-nourished Head exam: PRESENT: atraumatic, normocephalic Eye exam: PRESENT: conjunctiva pink, EOMI, PERRLA. ABSENT: scleral icterus Ear exam: PRESENT: normal external ear exam Mouth exam: PRESENT: moist, tongue midline Neck exam: ABSENT: carotid bruit, JVD, lymphadenopathy, thyromegaly Respiratory exam: PRESENT: decreased breath sounds, rhonchi, symmetrical, unlabored. ABSENT: rales, wheezes Cardiovascular exam: PRESENT: RRR. ABSENT: diastolic murmur, rubs, systolic murmur Pulses: PRESENT: normal dorsalis pedis pul GI/Abdominal exam: PRESENT: normal bowel sounds, soft. ABSENT: distended, guarding, mass, organolmegaly, rebound, tenderness Rectal exam: PRESENT: deferred Gentrourinary exam: PRESENT: ecchymosis Extremities exam: PRESENT: full ROM. ABSENT: calf tenderness, clubbing, pedal edema Musculoskeletal exam: PRESENT: ambulatory, full ROM Neurological exam: PRESENT: alert, awake, oriented to person, oriented to place , oriented to time, oriented to situation, CN II-XII grossly intact. ABSENT: motor sensory deficit Psychiatric exam: PRESENT: appropriate affect, normal mood. ABSENT: homicidal ideation, suicidal ideation Skin exam: PRESENT: dry, intact, warm. ABSENT: cyanosis, rash Results Laboratory Results: 08/29/16 05:03 08/29/16 05:03 08/29/16 08/29/16 05:03 05:03 WBC 19.6 H RBC 5.11 Hgb 13.9 Hct 42.3 MCV 83 MCH 27.2 MCHC 32.8 RDW 14.9 H Plt Count 232 Seg Neutrophils % Not Reportable Lymphocytes % Not Reportable Monocytes % Not Reportable Eosinophils % Not Reportable Basophils % Not Reportable Absolute Neutrophils Not Reportable Absolute Lymphocytes Not Reportable Absolute Monocytes Not Reportable Absolute Eosinophils Not Reportable Absolute Basophils Not Reportable Sodium 135.3 L Potassium 4.3 Chloride 95 L Carbon Dioxide 32 H Anion Gap 8 BUN 26 H Creatinine 0.86 Est GFR ( Amer) > 60 Est GFR (Non-Af Amer) > 60 Glucose 100 Calcium 9.0 08/20/16 08/20/16 00:12 00:12 Creatine Kinase 72 CK-MB (CK-2) 1.16 Troponin I < 0.012 Impressions: Chest/Abdomen CTA 08/22/16 00:00 IMPRESSION: No CT angio evidence of acute pulmonary emboli or thoracic aortic dissection. Since the prior chest x-ray earlier today, patient has developed diffuse bilateral alveolar infiltrates worrisome for pulmonary edema Chest X-Ray 08/28/16 00:00 IMPRESSION: Further improved aeration of the lung. Mild persistent interstitial changes. Assessment & Plan - Diagnosis (1) Acute on chronic respiratory failure with hypoxia and hypercapnia Is this a current diagnosis for this admission?: YesPlan: Improving with steroids, antibiotics and nebulizer treatments. She is no longer hypercapneic, still requiring oxygen however. Cough and lung sounds are improving. Plan to discharge tomorrow. May need oxygen (2) COPD exacerbation Is this a current diagnosis for this admission?: YesPlan: Continue oral prednisone, antibiotics and nebulizer treatments (3) Diabetes mellitus type 2 in obese Is this a current diagnosis for this admission?: YesPlan: Continue current medications and sliding scale coverage (4) Hyperkalemia Is this a current diagnosis for this admission?: YesPlan: Resolved will continue to monitor (5) Pulmonary edema Qualifiers: Chronicity: acute Qualified Code(s): J81.0 - Acute pulmonary edema Is this a current diagnosis for this admission?: YesPlan: Diuresed yesterday. Appears euvolemic today (6) Diastolic dysfunction Is this a current diagnosis for this admission?: YesPlan: Will continue to monitor volume status (7) Hypertension Qualifiers: Hypertension type: essential hypertension Qualified Code(s): I10 - Essential (primary) hypertension Is this a current diagnosis for this admission?: YesPlan: Presently normotensive (8) Solitary kidney, acquired Is this a current diagnosis for this admission?: YesPlan: Monitor BuN/CR after recent CT with contrast and diuresis (9) Tobacco dependency Is this a current diagnosis for this admission?: YesPlan: Patient was counseled. She is adamant she is going to quit after this hospitalization (10) Bipolar disorder Qualifiers: Active/Remission status: remission status unspecified Qualified Code (s): F31.9 - Bipolar disorder, unspecified Is this a current diagnosis for this admission?: YesPlan: Continue present medication and monitor (11) Obesity (BMI 30-39.9) Is this a current diagnosis for this admission?: YesPlan: Counseled, (12) Hepatitis B Qualifiers: Viral hepatitis chronicity: chronic Is this a current diagnosis for this admission?: NoPlan: Patient is stable. No acute symptoms - Time Time Spent with patient: 25-34 minutes Critical Time spent with patient: 15-24 minutes Smoking Cessation Education: 3 to 10 minutes Medications reviewed and adjusted accordingly: Yes Anticipated discharge: Home Within: within 24 hours
[2016-08-29] MEDS: MONTELUKAST SODIUM 10 MG TABLET PO SCH (22:48)
[2016-08-29] MEDS: CYCLOBENZAPRINE HCL 10 MG TABLET PO SCH (22:48)
[2016-08-29] MEDS: TRAZODONE HCL 50 MG TABLET PO SCH (22:49)
[2016-08-29] MEDS: METFORMIN HCL 750 MG PO SCH (22:50)
[2016-08-30] MEDS: OXYCODONE HCL IR 5 MG TABLET PO PRN ×2 (00:53→13:30)
[2016-08-30] MEDS: HYDRALAZINE HCL 50 MG TABLET PO SCH ×3 (02:25→13:24)
[2016-08-30] MEDS: LANSOPRAZOLE 30 MG TAB.RAP.DR PO SCH ×2 (06:44→17:17)
[2016-08-30] MEDS: AMLODIPINE BESYLATE 5 MG TABLET PO SCH (09:38)
[2016-08-30] MEDS: BUDESONIDE/FORMOTEROL 160-4.5 MCG 60 PUFF/6 GM MDI IH SCH (09:39)
[2016-08-30] MEDS: CETIRIZINE 10 MG TABLET PO SCH (09:40)
[2016-08-30] MEDS: FLUOXETINE HCL 20 MG CAPSULE PO SCH (09:41)
[2016-08-30] MEDS: FLUTICASONE NASAL SPRAY 50 MCG/SPRY 120 SPRAY/16 GM NASL SCH (09:41)
[2016-08-30] MEDS: GUAIFENESIN 600 MG TABLET.SA PO SCH (09:42)
[2016-08-30] MEDS: LACTOBACILLUS ACIDOPHILUS 250 MG TAB PO SCH ×2 (09:42→17:16)
[2016-08-30] MEDS: LISINOPRIL 10 MG TABLET PO SCH (09:43)
[2016-08-30] MEDS: MELOXICAM 15 MG TABLET PO SCH (09:44)
[2016-08-30] MEDS: NICOTINE 21 MG/24 HR PATCH.TD24 TD SCH (09:45)
[2016-08-30] MEDS: OXYCODONE HCL SR 10 MG TABLET PO SCH (09:45)
[2016-08-30] MEDS: PREDNISONE 20 MG TABLET PO SCH (09:46)
[2016-08-30] MEDS: TIOTROPIUM BROMIDE DPI 5 CAP/KIT (18 MCG/CAP) IH SCH (09:47)
[2016-08-30] MEDS: ENOXAPARIN SODIUM INJ 40 MG/0.4 ML DISP.SYRIN SUBCUT SCH (09:49)
[2016-08-30] MEDS: INSULIN LISPRO 100 UNIT/ML 3 ML VIAL SUBCUT PRN ×3 (09:50→17:24)
--- NOTE | 2016-08-30 14:49 | PDOC DISCHARGE SUMMARY ---
General - Admit/Disc Date/PCP Admission Date/Primary Care Provider: 08/19/16 23:40 SUNNY BONG Discharge Date: 08/30/16 - Discharge Diagnosis (1) Acute on chronic respiratory failure with hypoxia and hypercapnia Is this a current diagnosis for this admission?: YesSummary: Much improved. Patient will need oxygen for home with exertion and hs at 2l/min via n/c (2) COPD exacerbation Is this a current diagnosis for this admission?: YesSummary: Continue inhalers and current medication (3) Diabetes mellitus type 2 in obese Is this a current diagnosis for this admission?: YesSummary: Continue current medications (4) Hyperkalemia Is this a current diagnosis for this admission?: YesSummary: Resolved (5) Pulmonary edema Is this a current diagnosis for this admission?: YesSummary: Resolved (6) Diastolic dysfunction Is this a current diagnosis for this admission?: YesSummary: Continue current medications (7) Hypertension Is this a current diagnosis for this admission?: YesSummary: Continue current medications (8) Solitary kidney, acquired Is this a current diagnosis for this admission?: YesSummary: Avoid nephrotoxic drugs and dosages (9) Tobacco dependency Is this a current diagnosis for this admission?: YesSummary: Nicotine patch daily until urges to smoke are gone (10) Bipolar disorder Is this a current diagnosis for this admission?: YesSummary: Continue current medications (11) Obesity (BMI 30-39.9) Is this a current diagnosis for this admission?: YesSummary: Counseled (12) Hepatitis B Is this a current diagnosis for this admission?: NoSummary: No symptoms - Additional Information Resuscitation Status: Full Code Discharge Diet: Diabetic Discharge Activity: Activity As Tolerated, Balance Activity w/Rest Home Medications: Fluoxetine HCl [Prozac 20 mg Capsule] 20 mg PO DAILY 09/11/11 Trazodone HCl [Desyrel 50 mg Tablet] 50 mg PO QHS 09/11/11 Metformin HCl [Metformin HCl ER] 750 mg PO QHS 12/31/14 Levofloxacin [Levaquin 750 mg Tablet] 750 mg PO DAILY #3 tablet 01/11/15 Albuterol Sulfate [Albuterol Sulfate 2.5mg/3 mL] 1 vial IH Q4HP PRN 08/20/16 Albuterol Sulfate [Albuterol Sulfate Hfa] 2 puff IH Q4HP PRN 08/20/16 Budesonide/Formoterol Fumarate [Symbicort HFA 160-4.5 mcg Inhaler 6 gm] 2 puff IH Q12 08/20/16 Cyclobenzaprine HCl 5 mg PO QHS 08/20/16 Ipratropium [place] [Atrovent 0.02% Neb 0.5 mg/2.5 ml Ampul] 0.5 mg NEB QIDP PRN 08/20/16 Lisinopril [Prinivil 10 mg Tablet] 40 mg PO Q12 08/20/16 Meloxicam 15 mg PO DAILY 08/20/16 Ondansetron [Zofran Odt 4 mg Tablet] 4 mg PO TIDP PRN 08/20/16 Oxycodone HCl [Oxycontin] 30 mg PO Q12 08/20/16 Oxycodone HCl/Acetaminophen [Oxycodon-Acetaminophen 7.5-325] 1 tab PO Q6HP PRN 08/20/16 Benzonatate [Tessalon Perles 100 mg Capsule] 100 mg PO Q8HP PRN #30 capsule 01/08 Fluticasone Propionate [Flonase Nasal Lawrence 50 Mcg/Lawrence 16 gm] 2 spray NASL Q12 #1 bottle 08/30/16 Guaifenesin [Mucinex Sr 600 mg Tablet.sa] 1,200 mg PO Q12 #20 tablet.sa Levofloxacin [Levaquin 750 mg Tablet] 750 mg PO DAILY #4 tablet 08/30/16 Montelukast Sodium [Singulair 10 mg Tablet] 10 mg PO QHS #30 tablet 08/30/16 Nicotine [Nicoderm 21 mg/24 Hr Transderm Patch] 1 each TD DAILY #30 patch.td24 08/30/16 Oxycodone HCl [Oxy-Ir 5 mg Tablet] 5 mg PO Q6HP PRN tablet 08/30/16 Oxycodone HCl [Oxycontin Sr 10 mg Tablet] 30 mg PO Q12 tab.sr.12h 08/30/16 Prednisone [Deltasone 20 mg Tablet] 20 mg PO ASDIR PRN #6 tablet 08/30/16 History of Present Illness Patient complains of: Cough, wheezing and dyspnea History of Present Illness: PATRICE KEY is a 51 year old female with a history of bipolar disorder, Diabetes mellitus type II, essential hypertension, asthma, tobacco abuse, COPD, and chronic pain syndrome presented to the emergency room on 08/19/2016 complain of increasing dyspnea and wheezing as well as cough. She describes a three-week history of progressive shortness of breath with sinus congestion and productive cough. She had intermittent fevers as well. She's had increasing dyspnea over the last 24 hours prior to her arrival here. She was initially seen by her primary care provider who gave her prescription for doxycycline for 10 days and then switched her to Levaquin for the last 2 days. She has not noted any improvement of her shortness of breath. She does not wear oxygen at home. The emergency room she was found to be tachypneic, tachycardic, and hypoxemic here. Resting oxygen saturation was 80%. Chest x-ray is obtained which showed no pneumonia or infiltrates. She was pancultured and started on IV antibiotics and IV steroids. Emergency room physician. She was referred to the hospitalist service for admission. Hospital Course Hospital Course: She was admitted to this telemetry floor. She had IV antibiotics, nebulizer treatments and IV steroids. She began to have a more productive cough. During her second day of hospitalization she was noted to have increasing crackles in both lungs. She was diuresed. She continued to improve slowly over the next several days. Sputum culture showed no bacteria she was transitioned to oral antibiotics. She continued to have cough and wheezing. Prednisone was converted to oral and slowly tapered down. She began to increase her activity and continued to have hypoxemia on room air with exercise. Today she feels well. She feels ready for discharge. Discharged home with home oxygen at 2 L/ m. She will follow-up with her primary care provider within the next week. Physical Exam Vital Signs: Temp Pulse Resp BP Pulse Ox 99.1 F 119 H 16 128/48 H 92 08/30/16 07:16 08/30/16 08:25 08/30/16 08:00 08/30/16 07:16 08/30/16 08:00 Intake & Output 08/29/16 08/30/16 08/31/16 06:59 06:59 06:59 Intake Total 1400 540 Balance 1400 540 Weight 115 kg General appearance: PRESENT: no acute distress, morbidly obese, well-developed, well-nourished Head exam: PRESENT: atraumatic, normocephalic Eye exam: PRESENT: conjunctiva pink, EOMI, PERRLA. ABSENT: scleral icterus Ear exam: PRESENT: normal external ear exam Mouth exam: PRESENT: moist, neck supple, tongue midline Neck exam: ABSENT: carotid bruit, JVD, lymphadenopathy, thyromegaly Respiratory exam: PRESENT: decreased breath sounds, rhonchi, symmetrical, unlabored Cardiovascular exam: PRESENT: RRR. ABSENT: diastolic murmur, rubs, systolic murmur Pulses: PRESENT: normal dorsalis pedis pul Vascular exam: PRESENT: normal capillary refill GI/Abdominal exam: PRESENT: normal bowel sounds, soft. ABSENT: distended, guarding, mass, organolmegaly, rebound, tenderness Rectal exam: PRESENT: deferred Extremities exam: PRESENT: full ROM. ABSENT: calf tenderness, clubbing, pedal edema Neurological exam: PRESENT: alert, awake, oriented to person, oriented to place , oriented to time, oriented to situation, CN II-XII grossly intact. ABSENT: motor sensory deficit Results Laboratory Results: 08/29/16 05:03 08/29/16 05:03 08/20/16 08/20/16 00:12 00:12 Creatine Kinase 72 CK-MB (CK-2) 1.16 Troponin I < 0.012 Impressions: Chest/Abdomen CTA 08/22/16 00:00 IMPRESSION: No CT angio evidence of acute pulmonary emboli or thoracic aortic dissection. Since the prior chest x-ray earlier today, patient has developed diffuse bilateral alveolar infiltrates worrisome for pulmonary edema Chest X-Ray 08/28/16 00:00 IMPRESSION: Further improved aeration of the lung. Mild persistent interstitial changes. Qualifiers PATEINT BEING DISCHARGED WITH ANY OF THE FOLLOWING DIAGNOSIS?: No Plan Discharge Plan: Discharge home with family. Time Spent: Less than 30 Minutes
[2016-08-30 16:45] VITALS: BP 139/63
== END 2016-08-30 18:15 | disposition home or self-care (01) | DRG 190 ==
LOC: ER 16:50 → UNDOADMIN 22:01 → EH 22:01 → 4N 08-20 01:50
PROVIDERS: ADMIT Family Medicine; ATTEND Family Medicine
PROC: 3E0F73Z Introduction of Anti-inflammatory into Respiratory Tract, Via Natural or Artificial Opening (ICD-10-PCS; principal; 2016-08-20)
DX: J44.1 Chronic obstructive pulmonary disease with (acute) exacerbation (principal); J96.22 Acute and chronic respiratory failure with hypercapnia; J96.21 Acute and chronic respiratory failure with hypoxia; J81.0 Acute pulmonary edema; Z68.42 Body mass index [BMI] 45.0-49.9, adult; N17.9 Acute kidney failure, unspecified; B19.10 Unspecified viral hepatitis B without hepatic coma; J45.901 Unspecified asthma with (acute) exacerbation; E87.5 Hyperkalemia; E66.9 Obesity, unspecified; I10 Essential (primary) hypertension; F17.210 Nicotine dependence, cigarettes, uncomplicated; F31.9 Bipolar disorder, unspecified; E11.9 Type 2 diabetes mellitus without complications; G89.4 Chronic pain syndrome; E78.5 Hyperlipidemia, unspecified; J45.909 Unspecified asthma, uncomplicated; M19.90 Unspecified osteoarthritis, unspecified site; Z90.49 Acquired absence of other specified parts of digestive tract; Z88.0 Allergy status to penicillin; Z90.5 Acquired absence of kidney; Z98.51 Tubal ligation status; Z79.84 Long term (current) use of oral hypoglycemic drugs; Z79.52 Long term (current) use of systemic steroids; Z79.899 Other long term (current) drug therapy; Z99.81 Dependence on supplemental oxygen
CPT/HCPCS: 36415; 71020; 71275; 80048; 80053; 81001; 82550; 82553; 82803; 82962; 83036; 83735; 84484; 85025; 85027; 85379; 87040; 87070; 87205; 87804; 93005; 93010; 94640; 94667; 94668; 94799; 96372; 99285; J0360; J0456; J1650; J1815; J1940; J2060; J2930; J3490; J7030; J7060; J7512; J7620; S0119

== ENCOUNTER 2017-04-08 11:26 | Emergency (ER) | payer BC, MEDICAID ==
[2017-04-08] MEDS ORDERED: IPRATROPIUM/ALBUTEROL 0.5-2.5 MG/3 ML AMPUL NEB ONE (11:47)
[2017-04-08] MEDS ORDERED: ALBUTEROL SULFATE 0.083% NEB 2.5 MG/3 ML AMPUL NEB ONE ×2 (11:47→13:20)
[2017-04-08] MEDS ORDERED: METHYLPREDNISOLONE INJ 125 MG/2 ML SDV IV ONE (11:47)
--- NOTE | 2017-04-08 11:48 | ER Document Report ---
ED Medical Screen (RME) - General Chief Complaint: Shortness Of Breath Stated Complaint: SHORTNESS OF BREATH Time Seen by Provider: 04/08/17 11:42 Mode of Arrival: Wheelchair Information source: Patient TRAVEL OUTSIDE OF THE [place] 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 Neurological Medical History: Denies: Hx Cerebrovascular Accident, Hx Seizures Endocrine Medical History: Reports: Hx Diabetes Mellitus Type 2. Denies: Hx Diabetes Mellitus Type 1, Hx Hyperthyroidism, Hx Hypothyroidism Renal/ Medical History: Denies: Hx Peritoneal Dialysis GI Medical History: Reports: Hx Hepatitis - Hepatitis B. Denies: Hx Cirrhosis, Hx Gastroesophageal Reflux Disease Musculoskeltal Medical History: Reports Hx Arthritis, Denies Hx Fibromyalgia, Denies Hx Musculoskeletal Deformity Psychiatric Medical History: Reports: Hx Bipolar Disorder, Hx Depression Denies: Hx Anxiety Infectious Medical History: Reports: Hx Hepatitis - Hepatitis B. Denies: Hx MRSA Past Surgical History: Reports: Hx Appendectomy, Hx Genitourinary Surgery - multiple stents, nephrostomies, partial nephrectomy, Hx Orthopedic Surgery - R FOOT, Hx Tubal Ligation, Other - Nephrectomy for benign disease - Immunizations Hx Diphtheria, Pertussis, Tetanus Vaccination: Yes Physical Exam - Vital signs Vitals: Temp Pulse Resp BP Pulse Ox 97.9 F 99 20 135/77 H 94 04/08/17 11:31 04/08/17 11:31 04/08/17 11:31 04/08/17 11:31 04/08/17 11:31 Course - Vital Signs Vital signs: Temp Pulse Resp BP Pulse Ox 97.9 F 99 20 135/77 H 94 04/08/17 11:31 04/08/17 11:31 04/08/17 11:31 04/08/17 11:31 04/08/17 11:31
--- NOTE | 2017-04-08 12:44 | RADIOLOGY REPORT (SQ) ---
EXAM DESCRIPTION: CHEST PA/LAT COMPLETED DATE/TIME: 04/08/2017 12:22 pm REASON FOR STUDY: db COMPARISON: 08/28/2016 EXAM PARAMETERS: NUMBER OF VIEWS: two views TECHNIQUE: Digital Frontal and Lateral radiographic views of the chest acquired. RADIATION DOSE: NA LIMITATIONS: none FINDINGS: LUNGS AND PLEURA: No opacities, masses or pneumothorax. No pleural effusion. MEDIASTINUM AND HILAR STRUCTURES: No masses or contour abnormalities. HEART AND VASCULAR STRUCTURES: Heart normal size. No evidence for failure. BONES: No acute findings. HARDWARE: None in the chest. OTHER: No other significant finding. IMPRESSION: NO ACUTE RADIOGRAPHIC FINDING IN THE CHEST. TECHNICAL DOCUMENTATION: JOB ID: [id number] [employer]- All Rights Reserved
[2017-04-08 13:07] LABS: ABSOLUTE BASOPHILS # (AUTO) 0.1 10^3/uL (0.0-0.2); ABSOLUTE EOSINOPHILS # (AUTO) 0.4 10^3/uL (0.0-0.6); ABSOLUTE LYMPHOCYTES (AUTO) 1.5 10^3/uL (0.5-4.7); ABSOLUTE MONOCYTES (AUTO) 0.6 10^3/uL (0.1-1.4); ABSOLUTE NEUT (AUTO) 8.7 10^3/uL (1.7-8.2); BASOPHILS % (AUTO) 0.9 % (0-2); EOSINOPHILS % (AUTO) 3.5 % (0-6); HEMATOCRIT 40.3 % (36.0-47.0); HEMOGLOBIN 13.6 g/dL (12.0-15.5); HGB HCT DIFFERENCE 0.5; LYMPHOCYTES % (AUTO) 13.6 % (13-45); MEAN CORPUSCULAR HEMOGLOBIN 29.5 pg (27.0-33.4); MEAN CORPUSCULAR HGB CONC 33.9 g/dL (32.0-36.0); MEAN CORPUSCULAR VOLUME 87 fl (80-97); MONOCYTES % (AUTO) 5.2 % (3-13); RED BLOOD COUNT 4.62 10^6/uL (3.72-5.28); RED CELL DISTRIBUTION WIDTH 14.5 % (11.5-14.0); SEGMENTED NEUTROPHILS % (AUTO) 76.8 % (42-78); VENOUS BLOOD BASE EXCESS 1.6 mmol/L; VENOUS BLOOD HCO3 29.3 mmol/L (20-32); VENOUS BLOOD PCO2 59.1 mmHg (35-63); VENOUS BLOOD PH 7.31 (7.30-7.42); WHITE BLOOD COUNT 11.3 10^3/uL (4.0-10.5)
[2017-04-08] MEDS ORDERED: MAGNESIUM SULFATE/D5W 1 GM/100 ML RTUPB IV ONE (13:21)
[2017-04-08 13:22] LABS: ALANINE AMINOTRANSFERASE 54 U/L (9-52); ALBUMIN 4.1 g/dL (3.5-5.0); ALKALINE PHOSPHATASE 103 U/L (38-126); ANION GAP 14 (5-19); ASPARTATE AMINO TRANSFERASE 28 U/L (14-36); BILIRUBIN,DIRECT 0.4 mg/dL (0.0-0.4); BILIRUBIN,TOTAL 0.5 mg/dL (0.2-1.3); BLOOD UREA NITROGEN 24 mg/dL (7-20); CALCIUM 9.2 mg/dL (8.4-10.2); CARBON DIOXIDE 24 mmol/L (22-30); CHLORIDE 103 mmol/L (98-107); CREATININE RESULT 1.22 mg/dL (0.52-1.25); GLUCOSE 210 mg/dL (75-110); SODIUM 140.6 mmol/L (137-145); TOTAL PROTEIN 6.8 g/dL (6.3-8.2)
[2017-04-08] MEDS ORDERED: PREDNISONE 20 MG TABLET PO ONE (16:09)
--- NOTE | 2017-04-08 16:13 | ER Document Report ---
ED General - General Chief Complaint: Shortness Of Breath Stated Complaint: SHORTNESS OF BREATH Time Seen by Provider: 04/08/17 11:42 Mode of Arrival: Wheelchair TRAVEL OUTSIDE OF THE [place] IN LAST 30 DAYS: No - HPI Patient complains to provider of: Shortness of breath Notes: Patient coming in for evaluation shortness of breath. Patient has a history of COPD patient does admit to continue to smoke. Patient states the patient of Dr. Goodman his paediatric surgeon is ran out of albuterol. Patient states that she would not be here in the ER if she could see her paediatric surgeon today however they are currently full. Patient denies any recent travel denies any recent trauma denies chest pain. Patient denies any fevers chills nausea vomiting productive cough. Patient does have a dry cough. Upon my evaluation patient is resting comfortably in no obvious distress. - Related Data Allergies/Adverse Reactions: Penicillins Allergy (Severe, Verified 04/08/17 11:34) Anaphylaxis Past Medical History - General Information source: Patient - Social History Smoking Status: Unknown if Ever Smoked Family History: Reviewed & Not Pertinent - Past Medical History Cardiac Medical History: Reports: Hx Hypercholesterolemia - On no medication for same., Hx Hypertension Denies: Hx Heart Attack Pulmonary Medical History: Reports: Hx Asthma, Hx COPD - No home O2., Hx Pneumonia, Hx Sleep Apnea - CPAP, with setting of 5, but patient not completely certain of setting. Neurological Medical History: Denies: Hx Cerebrovascular Accident, Hx Seizures Endocrine Medical History: Reports: Hx Diabetes Mellitus Type 2. Denies: Hx Diabetes Mellitus Type 1, Hx Hyperthyroidism, Hx Hypothyroidism Renal/ Medical History: Denies: Hx Peritoneal Dialysis GI Medical History: Reports: Hx Hepatitis - Hepatitis B. Denies: Hx Cirrhosis, Hx Gastroesophageal Reflux Disease Musculoskeltal Medical History: Reports Hx Arthritis, Denies Hx Fibromyalgia, Denies Hx Musculoskeletal Deformity Psychiatric Medical History: Reports: Hx Bipolar Disorder, Hx Depression Denies: Hx Anxiety Infectious Medical History: Reports: Hx Hepatitis - Hepatitis B. Denies: Hx MRSA Past Surgical History: Reports: Hx Appendectomy, Hx Genitourinary Surgery - multiple stents, nephrostomies, partial nephrectomy, Hx Orthopedic Surgery - R FOOT, Hx Tubal Ligation, Other - Nephrectomy for benign disease - Immunizations Hx Diphtheria, Pertussis, Tetanus Vaccination: Yes Review of Systems - Review of Systems Constitutional: No symptoms reported EENT: No symptoms reported Cardiovascular: No symptoms reported Respiratory: Short of breath Gastrointestinal: No symptoms reported Genitourinary: No symptoms reported Female Genitourinary: No symptoms reported Musculoskeletal: No symptoms reported Skin: No symptoms reported Hematologic/Lymphatic: No symptoms reported Neurological/Psychological: No symptoms reported -: Yes All other systems reviewed and negative Physical Exam - Vital signs Vitals: Temp Pulse Resp BP Pulse Ox 97.9 F 99 20 135/77 H 94 04/08/17 11:04/08/17 11:04/08/17 11:04/08/17 11:04/08/17 11:31 Interpretation: Normal - General General appearance: Appears well, Alert - HEENT Head: Normocephalic, Atraumatic Eyes: Normal Pupils: PERRL - Respiratory Respiratory status: No respiratory distress Chest status: Nontender Breath sounds: Rales, Wheezing - Cardiovascular Rhythm: Regular Heart sounds: Normal auscultation Murmur: No - Abdominal Inspection: Normal Distension: No distension Bowel sounds: Normal Tenderness: Nontender Organomegaly: No organomegaly - Back Back: Normal, Nontender - Extremities General upper extremity: Normal inspection, Nontender, Normal color, Normal ROM , Normal temperature General lower extremity: Normal inspection, Nontender, Normal color, Normal ROM , Normal temperature, Normal weight bearing. No: Alo's sign - Neurological Neuro grossly intact: Yes Cognition: Normal Orientation: AAOx4 Keeley Coma Scale Eye Opening: Spontaneous Keeley Coma Scale Verbal: Oriented [place] Coma Scale Motor: Obeys Commands [place] Coma Scale Total: 15 Speech: Normal Motor strength normal: LUE, RUE, LLE, RLE Sensory: Normal - Psychological Associated symptoms: Normal affect, Normal mood - Skin Skin Temperature: Warm Skin Moisture: Dry Skin Color: Normal Course - Re-evaluation Re-evalutation: 04/08/17 17:55 Work does not show any significant pathology. Chest x-ray negative for pneumonia. Patient able ambulate around the ER without hypoxia. Will get the patient a prescription for prednisone and also bronchodilators patient is encouraged follow-up with her primary care physician. - Vital Signs Vital signs: Temp Pulse Resp BP Pulse Ox 97.9 F 99 18 159/89 H 90 L 04/08/17 11:31 04/08/17 11:31 04/08/17 17:01 04/08/17 17:01 04/08/17 17:01 - Laboratory Result Diagrams: 04/08/17 12:45 04/08/17 12:45 Laboratory results interpreted by me: 04/08/17 04/08/17 12:45 12:45 WBC 11.3 H RDW 14.5 H Absolute Neutrophils 8.7 H BUN 24 H Est GFR ( Amer) 56 L Est GFR (Non-Af Amer) 46 L Glucose 210 H ALT 54 H Discharge - Discharge Clinical Impression: COPD exacerbation, Tobacco dependency Condition: Good Disposition: HOME, SELF-CARE Instructions: Chronic Obstructive Lung Disease ([facility]), Stop Smoking ([facility]) Additional Instructions: Follow-up with primary care physician. Take medications as prescribed. Please stop smoking. Prescriptions: Albuterol Sulfate [Albuterol Sulfate 2.5mg/3 mL] 1 vial IH Q4 PRN #60 vial PRN Reason: Prednisone [Deltasone 20 mg Tablet] 60 mg PO DAILY 5 Days #30 tablet Forms: Smoking Cessation Education Referrals: SUNNY WOODY MD [Primary Care Provider] - Follow up as needed
--- NOTE | 2017-04-08 17:15 | EKG REPORT ---
SEVERITY:- BORDERLINE ECG - SINUS RHYTHM PROBABLE LEFT ATRIAL ABNORMALITY : Confirmed by: Elly Huerta 08-Apr-2017 17:14:24
[2017-04-08 17:53] VITALS: BP 149/82
== END 2017-04-08 17:54 | disposition home or self-care (01) ==
LOC: ER 11:26
DX: J44.1 Chronic obstructive pulmonary disease with (acute) exacerbation (principal); T48.6X6A Underdosing of antiasthmatics, initial encounter; Z91.128 Patient's intentional underdosing of medication regimen for other reason; Z91.14 Patient's other noncompliance with medication regimen; F17.200 Nicotine dependence, unspecified, uncomplicated; R06.02 Shortness of breath; Z87.892 Personal history of anaphylaxis; Z88.0 Allergy status to penicillin; I10 Essential (primary) hypertension
CPT/HCPCS: 93005; 94640; 99285; 96375; 96365; 36415; 87040; 85025; 80053; 82803; 71020; 93010; J2930; J3475; J7512; J7620

== ENCOUNTER → 2017-11-19 | Outpatient (CLI) | payer BC ==
--- NOTE | 2017-11-19 16:53 | RADIOLOGY REPORT (SQ) ---
EXAM DESCRIPTION: MRI CERVICAL SPINE WITHOUT COMPLETED DATE/TIME: 11/19/2017 4:30 pm REASON FOR STUDY: SEVERE PAIN LIMITED ROM M54.12 RADICULOPATHY, CERVICAL REGION COMPARISON: 10/05/2014 TECHNIQUE: Sagittal and Axial imaging includes T1, T2, STIR and gradient echo sequences. LIMITATIONS: Excessive motion. FINDINGS: ALIGNMENT: Anatomic. VERTEBRAE: Intact. BONE MARROW: Normal. No marrow replacement or reactive changes. DISCS: Desiccation multiple levels. HARDWARE: None in the spine. CORD AND BASE OF BRAIN: Normal in size and signal intensity. SOFT TISSUES: No soft tissue masses. C1-C2: No significant spinal stenosis. C2-C3: No significant spinal stenosis. Moderate neural foraminal narrowing bilaterally. C3-C4: Minimal narrowing of the spinal canal. Severe neural foraminal narrowing bilaterally. C4-C5: Minimal narrowing of the spinal canal. Severe neural foraminal narrowing bilaterally. C5-C6: Mild neural foraminal narrowing bilaterally. C6-C7: No significant spinal stenosis or exit foraminal stenosis. C7-T1: No significant spinal stenosis or exit foraminal stenosis. UPPER THORACIC: Incompletely imaged. No significant spinal stenosis or exit foraminal stenosis. OTHER: No other significant finding. IMPRESSION: Neural foraminal stenosis. No significant change. TECHNICAL DOCUMENTATION: JOB ID: [id number] [employer]- All Rights Reserved Reading location - IP/workstation name: [email or web address]
== END ==
LOC: RAD 15:30
PROVIDERS: ATTEND Nurse Practitioner Family
DX: M54.12 Radiculopathy, cervical region (principal); M48.02 Spinal stenosis, cervical region
CPT/HCPCS: 72141

== ENCOUNTER 2018-07-16 16:34 | Emergency (ER) | payer BC ==
[2018-07-16 17:32] VITALS: BP 148/84
[2018-07-16] MEDS ORDERED: DEXAMETHASONE 4 MG TABLET PO ONE (17:34)
[2018-07-16] MEDS ORDERED: IPRATROPIUM/ALBUTEROL 0.5-2.5 MG/3 ML AMPUL NEB ONE (17:34)
--- NOTE | 2018-07-16 17:35 | ER Document Report ---
ED Respiratory Problem - General Chief Complaint: Congestion Stated Complaint: COUGH,CONGESTION,SHORT OF BREATH Time Seen by Provider: 07/16/18 17:22 Mode of Arrival: Ambulatory Information source: Patient Notes: 53-year-old female presented to ED for cough cold congestion times 3-4 days. She states she is experiencing a productive cough without any improvement. She states she has been taking Mucinex and cold medicine for the last 4 days. She states the cough is so bad that is making her tired and weak. She states she has headache and backache from the coughing. She denies any fevers. She is alert and oriented respirations regular and unlabored speaking in full sentences. Patient does have a O2 sat between 90 and 95 with a history TRAVEL OUTSIDE OF THE [place] IN LAST 30 DAYS: No - HPI Patient complains to provider of: Cough, Short of breath Onset: Other - For 4 days Duration: Continuous Initiating Event: URI Quality of pain: Achy Severity: Moderate Pain Level: 3 Context: Hx COPD, Smoker Short of Breath: Mild Cough: Productive Sputum color: Green Sputum consistency: Thick EMS treatments: Bronchodilators Associated symptoms: Congestion, Cough, PND, Runny nose, Sinus pain/pressure, Sh ort of breath. denies: Fever Similar symptoms previously: Yes Recently seen / treated by doctor: No - Related Data Allergies/Adverse Reactions: Penicillins Allergy (Severe, Verified 03/25/18 22:02) Anaphylaxis Past Medical History - General Information source: Patient - Social History Smoking Status: Current Every Day Smoker Cigarette use (# per day): Yes - 1/2 ppd Chew tobacco use (# tins/day): No Smoking Education Provided: Yes - 4 min Frequency of alcohol use: None Drug Abuse: None Lives with: Family Family History: Reviewed & Not Pertinent Patient has suicidal ideation: No Patient has homicidal ideation: No - Past Medical History Cardiac Medical History: Reports: Hx Hypercholesterolemia - On no medication for same., Hx Hypertension Pulmonary Medical History: Reports: Hx Asthma, Hx COPD - No home O2., Hx Pneumonia, Hx Sleep Apnea - CPAP, with setting of 5, but patient not completely certain of setting. EENT Medical History: Reports: None Neurological Medical History: Reports: None Endocrine Medical History: Reports: Hx Diabetes Mellitus Type 2 Renal/ Medical History: Reports: None Malignancy Medical History: Reports: None GI Medical History: Reports: Hx Hepatitis - Hepatitis B Musculoskeletal Medical History: Reports Hx Arthritis, Reports Hx Musculoskeletal Deformity Skin Medical History: Reports None Psychiatric Medical History: Reports: Hx Bipolar Disorder, Hx Depression Traumatic Medical History: Reports: None Infectious Medical History: Reports: Hx Hepatitis - Hepatitis B Past Surgical History: Reports: Hx Appendectomy, Hx Genitourinary Surgery - multiple stents, nephrostomies, partial nephrectomy, Hx Orthopedic Surgery - R FOOT, Hx Tubal Ligation, Other - Nephrectomy for benign disease - Immunizations Immunizations up to date: No Hx Diphtheria, Pertussis, Tetanus Vaccination: No History of Influenza Vaccine for 04/2017 - 09/2017 Season: No Review of Systems - Review of Systems Constitutional: Chills, Recent illness EENT: Nose congestion, Nose discharge, Sinus pressure, Sinus discharge Cardiovascular: No symptoms reported Respiratory: Cough, Short of breath, Sputum, Wheezing Gastrointestinal: Nausea Genitourinary: No symptoms reported Musculoskeletal: No symptoms reported Skin: No symptoms reported Hematologic/Lymphatic: No symptoms reported Neurological/Psychological: Headaches -: Yes All other systems reviewed and negative Physical Exam - Vital signs Vitals: Temp Pulse Resp BP Pulse Ox 98.5 F 102 H 20 112/92 H 95 07/16/18 16:39 07/16/18 16:39 07/16/18 16:39 07/16/18 16:39 07/16/18 16:39 Interpretation: Normal - General General appearance: Appears well, Alert - HEENT Head: Normocephalic, Atraumatic Eyes: Normal Pupils: PERRL Ears: Normal External canal: Normal Tympanic membrane: Normal Sinus: Normal Nasal: Purulent discharge, Swelling Mouth/Lips: Normal Mucous membranes: Normal Pharynx: Post nasal drainage Neck: Normal - Respiratory Respiratory status: No respiratory distress Chest status: Nontender Breath sounds: Nonproductive cough, Rales, Wheezing Chest palpation: Normal - Cardiovascular Rhythm: Regular Heart sounds: Normal auscultation Murmur: No - Abdominal Inspection: Normal Distension: No distension Bowel sounds: Normal Tenderness: Nontender Organomegaly: No organomegaly - Back Back: Normal, Nontender - Extremities General upper extremity: Normal inspection, Nontender, Normal color, Normal ROM, Normal temperature General lower extremity: Normal inspection, Nontender, Normal color, Normal ROM, Normal temperature, Normal weight bearing. No: Alo's sign - Neurological Neuro grossly intact: Yes Cognition: Normal Orientation: AAOx4 Keeley Coma Scale Eye Opening: Spontaneous [place] Coma Scale Verbal: Oriented [place] Coma Scale Motor: Obeys Commands Keeley Coma Scale Total: 15 Speech: Normal Motor strength normal: LUE, RUE, LLE, RLE Sensory: Normal - Psychological Associated symptoms: Normal affect, Normal mood - Skin Skin Temperature: Warm Skin Moisture: Dry Skin Color: Normal Course - Re-evaluation Re-evalutation: 07/16/18 20:16 She states she has nebulizer medications and machine at home. Patient was treated with Decadron p.o. and DuoNeb in the emergency room with a decrease in the wheezing. Chest x-ray was negative and discussed with patient. Because patient has COPD with congestion and wheezing patient was discharged home with a Z-Lamberto as she is going out of town in the morning and will not be back in time to follow-up with primary care doctor for the next week. Patient was instructed to follow-up with an urgent care where she is going if she has any difficulty and to be sure to take her nebulizer machine and medication with her as well as all of her other medications. Patient verbalized agreement and understanding of instructions. Patient was instructed not to use [id number] cold medications except for Coricidin HB due to her elevated blood pressure and her cold symptoms. - Vital Signs Vital signs: Temp Pulse Resp BP Pulse Ox 98.7 F 87 24 H 148/84 H 95 07/16/18 17:31 07/16/18 17:31 07/16/18 17:31 07/16/18 17:31 07/16/18 17:31 - Diagnostic Test Radiology reviewed: Image reviewed, Reports reviewed Discharge - Discharge Clinical Impression: exacerbation of copd URI (upper respiratory infection) Qualifiers: URI type: unspecified URI Qualified Code(s): J06.9 - Acute upper respiratory infection, unspecified Condition: Stable Disposition: HOME, SELF-CARE Additional Instructions: UPPER RESPIRATORY ILLNESS: You have a viral infection of the respiratory passages -- a "cold." This common infection causes nasal congestion, drainage, and often sore throat and cough. It is highly contagious. The disease usually lasts about 10 to 14 days. There is no "cure" for the viral infection -- it must run its course. If there is a complication, such as bacterial infection in the nose, sinuses, middle ear, or bronchial tubes, antibiotics may be required. The antibiotics w on't affect the virus. Drink plenty of fluids. A humidifier may help. An expectorant medication or decongestant may make you more comfortable. Use acetaminophen or ibuprofen for fever or aches. See the doctor if fever persists over two days, if there is any significant worsening of your symptoms, or if you simply fail to improve as expected. BRONCHOSPASM: You have tightness in the bronchial tubes, called bronchospasm. This often occurs with bronchial infections. Allergies, inhaled chemicals, and polluted or cold air can also provoke bronchospasm. It's more likely in patients with asthma in the family. Emergency treatment of bronchospasm may include adrenaline shots or bronchodilator aerosol. You may feel lightheaded and have a rapid pulse for an hour or two. Rest and get plenty of fluids. At home, we'll treat you with a bronchodilator inhaler. Antibiotics and corticosteroids may be required for some patients. Until you recover, avoid chemical fumes, dusts, pollens, and exercising in very cold or dry air. If you smoke, stop now!! If you develop a fever, increased wheezing, chest pain, or severe shortness of breath, you should contact the doctor immediately. COUGH-SUPPRESSANT & EXPECTORANT MEDICATION: You are to use a cough medication as needed for relief of symptoms. This medicine is a combination of an expectorant (to make the mucous thinner and more easily "coughed up") and a cough suppressant (to reduce the frequency of coughing). The cough-suppressant medicine is related to narcotics. You may experience mild nausea and sleepiness. Some patients who are very sensitive to narcotics may have stomach pain from this medicine. Taking the medicine with food reduces these side effects. Do not drive or work with machinery until you know how this medicine affects you. The expectorant should have no side effects. Iodine-containing expectorants (such as organidin) should not be taken by persons with active thyroid disease unless approved by your doctor. Call the doctor if you develop shortness of breath, hives, rash, itching, lightheadedness, or severe nausea and vomiting. INHALED BRONCHODILATORS: You have received a treatment of and/or prescription for an inhaled bronchodilator -- a medication which stimulates the airways in the lung to dilate. This improves the flow of air in asthma, bronchitis, and emphysema. These medicines have some similarity to adrenaline, and can cause similar side effects: shakiness, racing heart, and a sense of nervousness. These side effects decrease with time. Contact your doctor if these side effects are severe. Do not over-use the medicine. Too-frequent use of the inhaler may make it ineffective. Call your doctor if the inhaler is not controlling your symptoms at the prescribed doses. STEROID MEDICATION: You have been given an injection of or oral medicine of the cortisone/steroid class. This medication is used to control inflammation or allergy. Cuate t is usually only given for a short period of time, until the acute process subsides. There are usually no side effects from short-term use of cortisone-like medications. Some persons feel an increased sense of well-being and are not sleepy at bedtime. Long-term use of cortisone medications is best avoided, unless required for a severe condition. If your condition does not remit, or relapses after the course of corticosteroid medication, you should consult your physician. USE OF ACETAMINOPHEN (Tylenol): Acetaminophen may be taken for pain relief or fever control. It's much safer than aspirin, offering a wider range of "safe" dosages. It is safe during . Some brand names are Tylenol, Panadol, Datril, Anacin 3, Tempra, and Liquiprin. Acetaminophen can be repeated every four hours. The following are maximum recommended dosages: >89 pounds or adults 650 mg to 900 mg Acetaminophen can be repeated every four hours. Maximum dose not to exceed 4000 mg a day. SMOKING: If you smoke, you should stop smoking. The tar and chemicals in cigarette smoke are harmful. Smoking has been shown to cause: emphysema chronic bronchitis lung cancer mouth and throat cancer stomach and pancreas cancer premature aging defects In addition, smoking increases ear and lung infections in children of smokers. Azithromycin Azithromycin (Zithromax) is a broad spectrum antibiotic in the same class as erythromycin. It can treat a variety of bacterial infections, but is most frequently used for respiratory infections. Azithromycin is extremely long-lasting. It accumulates in body tissues and continues to kill bacteria for many days. In order to improve absorption, Azithromycin should be taken at least one hour before or two hours after a meal. It does not have the same strong tendency to upset the stomach as erythromycin and is usually very well tolerated. Patients who have had a rash or other true allergic reactions to erythromycin should not take this medication. Call if you develop gastrointestinal distress, severe diarrhea, rash, hives, itching, or shortness of breath. FOLLOW-UP CARE: If you have been referred to a physician for follow-up care, call the physicians office for an appointment as you were instructed or within the next two days. If you experience worsening or a significant change in your symptoms, notify the physician immediately or return to the Emergency Department at any time for re-evaluation. Prescriptions: Azithromycin [Zithromax 250 mg Tablet] 250 mg PO ASDIR PRN #6 tablet PRN Reason: Forms: Elevated Blood Pressure, Smoking Cessation Education Referrals: [facility] [Provider Group] - Follow up as needed
--- NOTE | 2018-07-16 18:10 | RADIOLOGY REPORT (SQ) ---
EXAM DESCRIPTION: CHEST 2 VIEWS COMPLETED DATE/TIME: 07/16/2018 5:57 pm REASON FOR STUDY: cough congestion short of breath copd COMPARISON: 03/25/2018 EXAM PARAMETERS: NUMBER OF VIEWS: two views TECHNIQUE: Digital Frontal and Lateral radiographic views of the chest acquired. RADIATION DOSE: NA LIMITATIONS: none FINDINGS: LUNGS AND PLEURA: No opacities, masses or pneumothorax. No pleural effusion. MEDIASTINUM AND HILAR STRUCTURES: No masses or contour abnormalities. HEART AND VASCULAR STRUCTURES: Heart normal size. No evidence for failure. BONES: No acute findings. HARDWARE: None in the chest. OTHER: No other significant finding. IMPRESSION: NO ACUTE RADIOGRAPHIC FINDING IN THE CHEST. TECHNICAL DOCUMENTATION: JOB ID: [id number] [employer]- All Rights Reserved Reading location - IP/workstation name: [email or web address]
== END 2018-07-16 18:27 | disposition home or self-care (01) ==
LOC: ER 16:34
DX: J06.9 Acute upper respiratory infection, unspecified (principal); J44.1 Chronic obstructive pulmonary disease with (acute) exacerbation; R09.81 Nasal congestion; R05 Cough; R06.02 Shortness of breath; R51 Headache; R09.89 Other specified symptoms and signs involving the circulatory and respiratory systems; R09.82 Postnasal drip; F17.210 Nicotine dependence, cigarettes, uncomplicated; I10 Essential (primary) hypertension; E11.9 Type 2 diabetes mellitus without complications
CPT/HCPCS: 99406; 94640; 99283; 71046; J7620

== ENCOUNTER → 2018-10-11 | Outpatient (CLI) | payer BC ==
--- NOTE | 2018-10-11 13:14 | RADIOLOGY REPORT (SQ) ---
EXAM DESCRIPTION: CERV SP 4 OR 5 VIEWS; T SPINE AP/LAT COMPLETED DATE/TIME: 10/11/2018 12:39 pm REASON FOR STUDY: M54.2 CERVICALGIA COMPARISON: None. FINDINGS: Five views cervical spine: Normal alignment. Mild disc related osteophytes. Disc spaces are preserved. Multilevel mild facet arthropathy. Up to moderate foraminal narrowing on the left a t C3-4 and C4-5. No fracture or bone lesion or soft tissue pathology. Two view thoracic spine: Mild S-shaped scoliosis. No fracture. Mild disc related osteophytes. No soft tissue pathology. TECHNICAL DOCUMENTATION: JOB ID: [id number] Reading location - IP/workstation name: [email or web address]
--- NOTE | 2018-10-11 13:14 | RADIOLOGY REPORT (SQ) ---
EXAM DESCRIPTION: CERV SP 4 OR 5 VIEWS; T SPINE AP/LAT COMPLETED DATE/TIME: 10/11/2018 12:39 pm REASON FOR STUDY: M54.2 CERVICALGIA COMPARISON: None. FINDINGS: Five views cervical spine: Normal alignment. Mild disc related osteophytes. Disc spaces are preserved. Multilevel mild facet arthropathy. Up to moderate foraminal narrowing on the left a t C3-4 and C4-5. No fracture or bone lesion or soft tissue pathology. Two view thoracic spine: Mild S-shaped scoliosis. No fracture. Mild disc related osteophytes. No soft tissue pathology. TECHNICAL DOCUMENTATION: JOB ID: [id number] Reading location - IP/workstation name: [email or web address]
== END ==
LOC: RAD 10:02
PROVIDERS: ATTEND Physician Assistant
DX: M54.6 Pain in thoracic spine (principal); M41.82 Other forms of scoliosis, cervical region
CPT/HCPCS: 72050; 72070

== ENCOUNTER → 2019-05-28 | Outpatient (CLI) | payer BC ==
--- NOTE | 2019-05-28 10:53 | WOMENS IMAGING REPORT ---
EXAM DESCRIPTION: BILAT SCREENING MAMMO W/CAD COMPLETED DATE/TIME: 05/28/2019 7:34 am REASON FOR STUDY: Z12.31 SCREENING AVPTZH95.2 CHRONIC KIDNEY DISEASE, STAGE 2 (MILD)Z12.31 ENCNTR SCREEN MAMMOGRAM FOR MALIGNANT NEOPLASM OF DODIE COMPARISON: [id number] EXAM PARAMETERS: Standard craniocaudal and mediolateral oblique views of each breast recorded using digital acquisition. Read with the assistance of CAD. .[facility] - [employer] Version 9.2 LIMITATIONS: None. FINDINGS: RIGHT BREAST MASSES: No suspicious masses. CALCIFICATIONS: No new or suspicious calcifications. ARCHITECTURAL DISTORTION: None. ASYMMETRY: None noted. OTHER: Developing density tail the breast seen on the MLO view only 8 cm deep to the nipple. LEFT BREAST MASSES: No suspicious masses. CALCIFICATIONS: No new or suspicious calcifications. ARCHITECTURAL DISTORTION: None. ASYMMETRY: None noted. OTHER: No other significant findings. IMPRESSION: Developing density right breast. 0 Incomplete: Needs Additional Imaging Evaluation and/or prior Mammograms for Comparison. BREAST DENSITY: b. There are scattered areas of fibroglandular density. BIRAD: ASSESSMENT: 0 Incomplete: Needs Additional Imaging Evaluation and/or prior Mammograms for C omparison. RECOMMENDATION: RECOMMENDED FOLLOW-UP: True lateral cone compression views and potential ultrasound right breast. The patient will be contacted for additional imaging. COMMENT: The patient has been notified of the results by letter per MQSA requirements. Additional no tification policies are in place for contacting patient with suspicious or incomplete findings. Quality ID #225: The [employer] recommends an annual screening mammogram for women aged 40 years or over. This facility utilizes a reminder system to ensure that all patients receive reminder letters, and/or direct phone calls for appointments. This includes reminders for routine scr eening mammograms, diagnostic mammograms, or other Breast Imaging Interventions when appropriate. Th is patient will be placed in the appropriate reminder system. TECHNICAL DOCUMENTATION: FINDING NUMBER: (1) ASSESSMENT: (1) JOB ID: [id number] [employer]- All Rights Reserved Reading location - IP/workstation name: [email or web address]
--- NOTE | 2019-05-28 11:02 | WOMENS IMAGING REPORT ---
EXAM DESCRIPTION: RETROPERITONEAL U/S COMPLETED DATE/TIME: 05/28/2019 8:09 am REASON FOR STUDY: N18.2 CHRONIC KIDNEY DISEASE, STAGE 2 (MILD) N18.2 CHRONIC KIDNEY DISEASE, STAGE 2 (MILD) Z12.31 ENCNTR SCREEN MAMMOGRAM FOR MALIGNANT NEOPLASM OF DODIE COMPARISON: None. TECHNIQUE: Dynamic and static grayscale images acquired of the kidneys and bladder and recorded on P ACS. Additional selected color Doppler and spectral images recorded. LIMITATIONS: None. FINDINGS: RIGHT KIDNEY: Not visualized. LEFT KIDNEY: The left kidney measures 12.1 cm in length. Normal echogenicity. No solid or suspic ious masses. No hydronephrosis. No calcifications. BLADDER: Incompletely distended. OTHER FINDINGS: No other significant finding. IMPRESSION: 1. The right kidney is not visualized. 2. The left kidney is normal in size. Echogenicity is normal. No hydronephrosis. TECHNICAL DOCUMENTATION: JOB ID: [id number] [employer]- All Rights Reserved Reading location - IP/workstation name: [email or web address]
== END ==
LOC: WI 07:15
PROVIDERS: ATTEND Nurse Practitioner
DX: Z12.31 Encounter for screening mammogram for malignant neoplasm of breast (principal); R10.9 Unspecified abdominal pain
CPT/HCPCS: 76770; 77067

== ENCOUNTER → 2019-06-04 | Outpatient (CLI) | payer BC ==
--- NOTE | 2019-06-04 11:21 | WOMENS IMAGING REPORT ---
EXAM DESCRIPTION: RIGHT DIAGNOSTIC MAMMO W/CAD; U/S BREAST UNILAT LIMITED COMPLETED DATE/TIME: 06/04/2019 9:29 am; 06/04/2019 10:13 am REASON FOR STUDY: N63.31 UNSPECIFIED LUMP IN AXILLARY TAIL OF THE RIGHT BREAST; RT BREAST N63.31 N63 .31 UNSPECIFIED LUMP IN AXILLARY TAIL OF THE RIGHT BREAST COMPARISON: 05/28/2019 and 06/04/2016. EXAM PARAMETERS: True lateral and spot compression MLO and CC images acquired. LIMITATIONS: None. FINDINGS: BREAST LATERALITY: right MASSES: There is a circumscribed mass in the medial breast. Fairly smooth margins. CALCIFICATIONS: No new or suspicious calcifications. ARCHITECTURAL DISTORTION: None. ASYMMETRY: None noted. OTHER: No other significant findings. BREAST ULTRASOUND: TECHNIQUE: Static and dynamic grayscale images acquired of the right breast in the specific areas of clinical/mammographic concern. Selected color Doppler images recorded. ELASTOGRAPHY PERFORMED: No. LIMITATIONS: None. FINDINGS: MASS: No mass identified. Normal glandular tissue. ELASTOGRAPHY CHARACTERISTICS: Not applicable. OTHER: No other significant finding. IMPRESSION: Mass in the inferior medial right breast. This has fairly smooth margins but has progre ssed since 2016. Unable to visualize on ultrasound. Would recommend MRI for further evaluation. BREAST DENSITY: b. There are scattered areas of fibroglandular density. BIRAD: ASSESSMENT: 0 Incomplete: Needs additional imaging evaluation and/or prior mammograms for co mparison. RECOMMENDATION: RECOMMENDED FOLLOW UP: Birads 0: Mammographic and Ultrasound imaging did not solve t he problem. SPECIFIC INTERVENTION/IMAGING/CONSULTATION RECOMMENDED:Routine breast imaging is inconclusive. Breast MRI may be helpful. COMMUNICATION:The imaging findings were not discussed with the patient. Her referring provider has be en notified of the findings. COMMENT: The patient has been notified of the results by letter per MQSA requirements. Additional no tification policies are in place for contacting patient with suspicious or incomplete findings. Quality ID #225: The [employer] recommends an annual screening mammogram for women aged 40 years or over. This facility utilizes a reminder system to ensure that all patients receive reminder letters, and/or direct phone calls for appointments. This includes reminders for routine scr eening mammograms, diagnostic mammograms, or other Breast Imaging Interventions when appropriate. Th is patient will be placed in the appropriate reminder system. TECHNICAL DOCUMENTATION: FINDING NUMBER: (1) ASSESSMENT: (1) JOB ID: [id number] [employer]- All Rights Reserved Reading location - IP/workstation name: [email or web address]
== END ==
LOC: WI 09:11
PROVIDERS: ATTEND Obstetrics & Gynecology Gynecology
DX: N63.31 Unspecified lump in axillary tail of the right breast (principal)
CPT/HCPCS: 76642; 77065

== ENCOUNTER → 2019-07-30 | Outpatient (CLI) | payer BC ==
--- NOTE | 2019-07-30 11:03 | RADIOLOGY REPORT (SQ) ---
EXAM DESCRIPTION: KNEE LEFT 2 VIEWS COMPLETED DATE/TIME: 07/30/2019 10:52 am REASON FOR STUDY: LEFT KNEE PAIN (M25.562) M25.562 PAIN IN LEFT KNEE COMPARISON: None. NUMBER OF VIEWS: Two views. TECHNIQUE: AP and lateral radiographic images acquired of the left knee. LIMITATIONS: None. FINDINGS: MINERALIZATION: Normal. BONES: No acute fracture or dislocation. No worrisome bone lesions. JOINT: No effusion. SOFT TISSUES: No soft tissue swelling. No radio-opaque foreign body. OTHER: No other significant finding. IMPRESSION: No acute bony abnormality of the left knee. No significant degenerative change. TECHNICAL DOCUMENTATION: JOB ID: [id number] [employer]- All Rights Reserved Reading location - IP/workstation name: [email or web address]
== END ==
LOC: RAD 10:20
PROVIDERS: ATTEND Nurse Practitioner Family
DX: M25.562 Pain in left knee (principal)

== ENCOUNTER → 2019-09-17 | Outpatient (CLI) | payer BC ==
--- NOTE | 2019-09-17 12:13 | WOMENS IMAGING REPORT ---
EXAM DESCRIPTION: 3D DX MAMMO RIGHT UNILAT; U/S BREAST UNILAT LIMITED COMPLETED DATE/TIME: 09/17/2019 10:50 am; 09/17/2019 11:27 am REASON FOR STUDY: REQUESTED PER OFFICE/[facility]; RT BREAST N63.10 N63.10 UNSPECIFIED LUMP IN THE RIGHT BREAST, UNSPECIFIED JOSE COMPARISON: 05/28/2019 EXAM PARAMETERS: Standard craniocaudal and mediolateral oblique images of the breast recorded using digital acquisition and breast tomosynthesis. True lateral, exaggerated CC views. Read with the assistance of CAD. .[facility] - [employer] Version 9.2 LIMITATIONS: None. FINDINGS: BREAST LATERALITY: right MASSES: Smooth mass posteriorly seen on the MLO view only is not significantly changed. CALCIFICATIONS: No new or suspicious calcifications. ARCHITECTURAL DISTORTION: None. ASYMMETRY: None noted. OTHER: No other significant findings. Ultrasound posteriorly 9 6 o'clock demonstrates no solid or cystic mass. IMPRESSION: Unchanged smooth mass not visible by ultrasound. Apparently MRI could not be obtained. BREAST DENSITY: b. There are scattered areas of fibroglandular density. BIRAD: ASSESSMENT: 3 Probably benign finding. Initial short-interval follow-up suggested. RECOMMENDATION: RECOMMENDED FOLLOW UP: Birads 3: The patient will return in 6 months for follow-up i maging. SPECIFIC INTERVENTION/IMAGING/CONSULTATION RECOMMENDED:The patient will return for 6 month follow-up diagnostic mammography(tomosynthesis). COMMUNICATION:The imaging findings were not discussed with the patient. Her referring provider has be en notified of the findings. COMMENT: The patient has been notified of the results by letter per MQSA requirements. Additional no tification policies are in place for contacting patient with suspicious or incomplete findings. Quality ID #225: The [employer] recommends an annual screening mammogram for women aged 40 years or over. This facility utilizes a reminder system to ensure that all patients receive reminder letters, and/or direct phone calls for appointments. This includes reminders for routine scr eening mammograms, diagnostic mammograms, or other Breast Imaging Interventions when appropriate. Th is patient will be placed in the appropriate reminder system. TECHNICAL DOCUMENTATION: FINDING NUMBER: (1) ASSESSMENT: (1) JOB ID: [id number] 2010 [email or web address]- All Rights Reserved Reading location - IP/workstation name: [email or web address]
== END ==
LOC: WI 10:38
PROVIDERS: ATTEND Surgery
DX: N63.10 Unspecified lump in the right breast, unspecified quadrant (principal)
CPT/HCPCS: 76642; 77065

== ENCOUNTER → 2019-10-15 | Outpatient (CLI) | payer BC ==
[2019-10-15 09:38] LABS: A TYPE INFLUENZA AG NEGATIVE (NEGATIVE); B INFLUENZA AG NEGATIVE (NEGATIVE)
== END ==
LOC: RDC 08:44
PROVIDERS: ATTEND Registered Nurse
DX: Z20.828 Contact with and (suspected) exposure to other viral communicable diseases (principal)
CPT/HCPCS: 36415; 87070; 87635; 87804; 87880

== ENCOUNTER → 2020-03-27 | Outpatient (CLI) | payer BC ==
--- NOTE | 2020-03-27 13:43 | RADIOLOGY REPORT (SQ) ---
EXAM DESCRIPTION: CT LUNG CANCER SCREENING IMAGES COMPLETED DATE/TIME: 03/27/2020 12:58 pm REASON FOR STUDY: Z87.891 PERSONAL HISTORY OF NICOTINE DEPENDENCE Z87.891 PERSONAL HISTORY OF NICOT INE DEPENDENCE Has the patient had a Chest CT scan within the past year? N Was the patient offered tobacco cessation counseling? Y Was the patient engaged in shared decision making for this test? Y Does the patient have signs or symptoms of Lung Cancer? N Is the patient a smoker? Y How many pack years? 41YR How many years since quitting smoking? NA Patients age: 54 COMPARISON: None. TECHNIQUE: Low Dose CT scan performed of the chest without intravenous contrast for purposes of scre ening for lung cancer. Images reviewed with lung, soft tissue and bone windows. Reconstructed coron al and sagittal MPR images reviewed. All images stored on PACS. All CT scanners at this facility use dose modulation, iterative reconstruction, and/or weight based d osing when appropriate to reduce radiation dose to as low as reasonably achievable (ALARA). [facility]: Dose Right [facility]: CareDose [facility]: Dose Right [facility]: Teradose 4D [facility]: [employer] RADIATION DOSE: CT Rad equipment meets quality standard of care and radiation dose reduction techniq ues were employed. CTDIvol: NaN mGy. DLP: 0 mGy-cm. mGy. . LIMITATIONS: None FINDINGS: LUNGS AND PLEURA: No masses or nodules. No pleural effusions or calcifications. No pne umothorax. No scarring or interstitial changes. HILAR AND MEDIASTINAL STRUCTURES: No identified masses. No abnormal nodes. HEART AND VASCULAR STRUCTURES: No aortic aneurysm. No pericardial effusion. No cardiac devices. CORONARY ARTERY CALCIFICATIONS: No significant calcifications. UPPER ABDOMEN, THYROID, BONES, OTHER SOFT TISSUES: No significant findings. IMPRESSION: NO SIGNIFICANT FINDING IN THE LUNGS ON NON-CONTRASTED CHEST CT. NO OTHER CLINICALLY SIGNIFICANT/POTENTIALLY CLINICALLY SIGNIFICANT FINDINGS LUNGRADS: LUNGRADS: 1 NEGATIVE. NO NODULES, OR DEFINITELY BENIGN NODULES MODIFIER: NONE RECOMMENDATION: Continue annual screening with LDCT in 12 months. COMMENT: CRITERIA: No lung nodules. Nodules with specific calcifications: Complete, central, popcorn, concentric rings and fat containin g nodules. TECHNICAL DOCUMENTATION: JOB ID: [id number] Quality ID # [id number]: Final reports with documentation of one or more dose reduction techniques (e.g., Au tomated exposure control, adjustment of the mA and/or kV according to patient size, use of iterative reconstruction technique) 2010 [facility] [place] [facility] Reading location - IP/workstation name: [email or web address]-
== END ==
LOC: RAD 12:43
PROVIDERS: ATTEND Registered Nurse
DX: Z12.2 Encounter for screening for malignant neoplasm of respiratory organs (principal); Z87.891 Personal history of nicotine dependence
CPT/HCPCS: G0297

== ENCOUNTER → 2020-05-01 | Outpatient (CLI) | payer BC ==
[2020-05-01 14:30] LABS: ABSOLUTE BASOPHILS # (AUTO) 0.1 10^3/uL (0.0-0.2); ABSOLUTE EOSINOPHILS # (AUTO) 0.3 10^3/uL (0.0-0.6); ABSOLUTE LYMPHOCYTES (AUTO) 2.4 10^3/uL (0.5-4.7); ABSOLUTE MONOCYTES (AUTO) 0.6 10^3/uL (0.1-1.4); ABSOLUTE NEUT (AUTO) 9.5 10^3/uL (1.7-8.2); HEMATOCRIT 38.8 % (36.0-47.0); HEMOGLOBIN 13.4 g/dL (12.0-15.5); LYMPHOCYTES % (AUTO) 18.5 % (13-45); MEAN CORPUSCULAR HEMOGLOBIN 29.9 pg (27.0-33.4); MEAN CORPUSCULAR HGB CONC 34.5 g/dL (32.0-36.0); MEAN CORPUSCULAR VOLUME 87 fl (80-97); MONOCYTES % (AUTO) 4.4 % (3-13); RED BLOOD COUNT 4.48 10^6/uL (3.72-5.28); RED CELL DISTRIBUTION WIDTH 13.9 % (11.5-14.0); SEGMENTED NEUTROPHILS % (AUTO) 74.1 % (42-78); TOTAL CELLS COUNTED % (AUTO) 100 %
--- NOTE | 2020-05-01 15:07 | RADIOLOGY REPORT (SQ) ---
EXAM DESCRIPTION: CHEST PA/LATERAL IMAGES COMPLETED DATE/TIME: 05/01/2020 1:54 pm REASON FOR STUDY: PANLOBULAR EMPHYSEMA COMPARISON: 07/16/2018 EXAM PARAMETERS: NUMBER OF VIEWS: two views TECHNIQUE: Digital Frontal and Lateral radiographic views of the chest acquired. RADIATION DOSE: NA LIMITATIONS: none FINDINGS: LUNGS AND PLEURA: No opacities, masses or pneumothorax. No pleural effusion. MEDIASTINUM AND HILAR STRUCTURES: No masses or contour abnormalities. HEART AND VASCULAR STRUCTURES: Heart normal size. No evidence for failure. BONES: No acute findings. HARDWARE: None in the chest. OTHER: No other significant finding. IMPRESSION: NO SIGNIFICANT RADIOGRAPHIC FINDING IN THE CHEST. TECHNICAL DOCUMENTATION: JOB ID: [id number] 2010 [employer]- All Rights Reserved Reading location - IP/workstation name: [email or web address]
[2020-05-01 15:09] LABS: WHITE BLOOD COUNT 12.9 10^3/uL (4.0-10.5)
[2020-05-01 15:10] LABS: PLATELET COUNT 250 10^3/uL (150-450)
[2020-05-03 16:29] LABS: FREE THYROXINE INDEX 2.3 (1.2-4.9)
== END ==
LOC: OD 13:12
PROVIDERS: ATTEND Internal Medicine Pulmonary Disease
DX: J43.1 Panlobular emphysema (principal); R53.82 Chronic fatigue, unspecified; Z13.29 Encounter for screening for other suspected endocrine disorder
CPT/HCPCS: 36415; 71046; 84436; 84443; 84479; 85025